=== PATIENT | female | born 1955 | race Caucasian/White ===

== ENCOUNTER 2017-05-08 12:00 | Inpatient (IN) | payer MEDICARE ==
[~2017-05-08] VITALS: Ht 175.3 cm; Wt 45.5 kg
[~2017-05-08 12:00] MED LIST: ACET1TAB27 PO; AMOX-429 PO; ESOM40CA PO; FENT12PAT TD; PRIM250T30 PO; PROP60CA2 PO; TYL3 PO
[2017-05-08] MEDS ORDERED: HYDROMORPHONE HCL 2 MG/ML VIAL ONE (12:20)
[2017-05-08 12:53] LABS: BASOPHILS % (AUTO) 0.1 % (0.0-5.0); HEMATOCRIT 35.2 % (36-48); LYMPHOCYTES % (AUTO) 8.5 % (21.0-51.0); MEAN CORPUSCULAR HEMOGLOBIN 35.7 pg (27.0-33.0); MEAN CORPUSCULAR HGB CONC 34.3 g/dL (32.0-36.0); MEAN CORPUSCULAR VOLUME 104.3 fL (79-99); MONOCYTES % (AUTO) 3.7 % (3.0-13.0); NEUTROPHILS % (AUTO) 87.7 % (40.0-77.0); NUCLEATED RED BLOOD CELLS 0.1 % (0.0-0.19); PLATELET COUNT (AUTO) 357 K/uL (130-400); RED BLOOD CELL COUNT(AUTO) 3.37 MIL/uL (4.00-5.50); RED CELL DISTRIBUTION WIDTH 13.1 % (11.0-15.5); WHITE BLOOD COUNT (AUTO) 16.1 K/uL (4.8-10.8)
[2017-05-08 12:59] VITALS: BP 135/87
[2017-05-08 13:01] LABS: CREATININE 0.6 mg/dL (0.5-1.5); POTASSIUM 4.9 mmol/L (3.5-5.1)
[2017-05-08 13:07] LABS: ALBUMIN 2.7 g/dL (3.5-5.0); BILIRUBIN,TOTAL 0.9 mg/dL (0.2-1.0); TOTAL PROTEIN, SERUM 6.1 g/dL (6.0-8.3)
[2017-05-08] MEDS ORDERED: SODIUM CHLORIDE 0.9% 10 ML VIAL IVP PRN (13:15)
[2017-05-08 16:05] VITALS: BP 102/73
[2017-05-08] MEDS: HYDROMORPHONE HCL 2 MG/ML VIAL IVP PRN ×2 (17:17→23:22)
[2017-05-08] MEDS: ASPIRIN 325MG EC TAB 325 MG TABLET.DR PO SCH (17:17)
[2017-05-08] MEDS: MEROPENEM 1 GM VIAL IVP SCH ×2 (17:17→23:21)
[2017-05-08 20:00] VITALS: BP 125/82
[2017-05-09] VITALS (7 sets, daily range): BP systolic 106–121; BP diastolic 68–82
[2017-05-09] MEDS: MEROPENEM 1 GM VIAL IVP SCH ×3 (05:57→22:10)
[2017-05-09] MEDS: HYDROMORPHONE HCL 2 MG/ML VIAL IVP PRN ×5 (05:57→23:30)
[2017-05-09] MEDS: ASPIRIN 325MG EC TAB 325 MG TABLET.DR PO SCH (10:17)
[2017-05-10] MEDS: HYDROMORPHONE HCL 2 MG/ML VIAL IVP PRN ×6 (02:50→21:30)
[2017-05-10 04:11] VITALS: BP 116/75
[2017-05-10 05:48] LABS: HEMATOCRIT 31.3 % (36-48); MEAN CORPUSCULAR HGB CONC 34.6 g/dL (32.0-36.0); MEAN CORPUSCULAR VOLUME 104.1 fL (79-99); PLATELET COUNT (AUTO) 200 K/uL (130-400); RED BLOOD CELL COUNT(AUTO) 3.01 MIL/uL (4.00-5.50); RED CELL DISTRIBUTION WIDTH 13.1 % (11.0-15.5); WHITE BLOOD COUNT (AUTO) 9.3 K/uL (4.8-10.8)
[2017-05-10 05:55] LABS: CREATININE 0.3 mg/dL (0.5-1.5); POTASSIUM 3.5 mmol/L (3.5-5.1)
[2017-05-10] MEDS: MEROPENEM 1 GM VIAL IVP SCH ×3 (06:31→21:32)
[2017-05-10 07:53] VITALS: BP 100/71
[2017-05-10] MEDS: ASPIRIN 325MG EC TAB 325 MG TABLET.DR PO SCH (10:16)
[2017-05-10 11:33] VITALS: BP 113/76
[2017-05-10 16:00] VITALS: BP 133/67
[2017-05-10 19:30] VITALS: BP 114/71
[2017-05-10 23:42] VITALS: BP 104/70
[2017-05-11] MEDS: HYDROMORPHONE HCL 2 MG/ML VIAL IVP PRN ×5 (02:16→22:02)
[2017-05-11 04:25] VITALS: BP 106/75
[2017-05-11] MEDS: MEROPENEM 1 GM VIAL IVP SCH ×3 (05:54→22:01)
[2017-05-11 08:22] VITALS: BP 123/78
[2017-05-11] MEDS: ASPIRIN 325MG EC TAB 325 MG TABLET.DR PO SCH (08:58)
[2017-05-11 11:00] VITALS: BP 97/63
[2017-05-11] MEDS: ACETAMINOPHEN-CODEINE 300/30MG TAB PO PRN (18:06)
[2017-05-11 19:00] VITALS: BP 116/72
[2017-05-11] MEDS: HONEY 1 APPL/ML TUBE TP SCH (20:42)
[2017-05-12] VITALS: BP 95/67
[2017-05-12] MEDS: HYDROMORPHONE HCL 2 MG/ML VIAL IVP PRN ×3 (03:29→15:22)
[2017-05-12 03:53] LABS: BASOPHILS % (AUTO) 0.7 % (0.0-5.0); EOSINOPHILS % (AUTO) 1.9 % (0.0-8.0); HEMATOCRIT 30.8 % (36-48); LYMPHOCYTES % (AUTO) 23.4 % (21.0-51.0); MEAN CORPUSCULAR HEMOGLOBIN 37.9 pg (27.0-33.0); MEAN CORPUSCULAR HGB CONC 36.3 g/dL (32.0-36.0); MEAN CORPUSCULAR VOLUME 104.2 fL (79-99); MONOCYTES % (AUTO) 11.8 % (3.0-13.0); NEUTROPHILS % (AUTO) 62.2 % (40.0-77.0); NUCLEATED RED BLOOD CELLS 0.1 % (0.0-0.19); PLATELET COUNT (AUTO) 234 K/uL (130-400); RED BLOOD CELL COUNT(AUTO) 2.95 MIL/uL (4.00-5.50); RED CELL DISTRIBUTION WIDTH 13.6 % (11.0-15.5)
[2017-05-12 04:00] VITALS: BP 116/78
[2017-05-12 04:05] LABS: ALBUMIN 1.9 g/dL (3.5-5.0); BILIRUBIN,TOTAL 0.3 mg/dL (0.2-1.0); CREATININE 0.5 mg/dL (0.5-1.5); POTASSIUM 3.7 mmol/L (3.5-5.1); TOTAL PROTEIN, SERUM 4.8 g/dL (6.0-8.3)
[2017-05-12] MEDS: ACETAMINOPHEN-CODEINE 300/30MG TAB PO PRN (06:44)
[2017-05-12] MEDS: MEROPENEM 1 GM VIAL IVP SCH ×2 (06:45→13:53)
[2017-05-12 08:00] VITALS: BP 115/69
[2017-05-12] MEDS: HONEY 1 APPL/ML TUBE TP SCH (09:00)
[2017-05-12] MEDS: ASPIRIN 325MG EC TAB 325 MG TABLET.DR PO SCH (09:56)
[2017-05-12 11:00] VITALS: BP 108/63
[2017-05-12 16:43] VITALS: BP 111/77
[2017-05-12] MEDS ORDERED: AMOX1TAB16 PO (18:53)
[2017-05-12] MEDS ORDERED: ACET1TAB25 PO (18:53)
== END 2017-05-12 21:29 | disposition home health service (06) | DRG 602 ==
LOC: EDH 12:00 → EDHIP 12:01 → 3AH 12:48
PROVIDERS: ADMIT Internal Medicine; ATTEND Internal Medicine
DX: L03.115 Cellulitis of right lower limb (principal); E43 Unspecified severe protein-calorie malnutrition; I96 Gangrene, not elsewhere classified; L97.909 Non-pressure chronic ulcer of unspecified part of unspecified lower leg with unspecified severity; K86.1 Other chronic pancreatitis; I87.2 Venous insufficiency (chronic) (peripheral); I87.8 Other specified disorders of veins; I83.009 Varicose veins of unspecified lower extremity with ulcer of unspecified site; L03.116 Cellulitis of left lower limb; F10.10 Alcohol abuse, uncomplicated; M19.90 Unspecified osteoarthritis, unspecified site; F17.210 Nicotine dependence, cigarettes, uncomplicated; G89.4 Chronic pain syndrome; I49.3 Ventricular premature depolarization; I77.1 Stricture of artery; M48.00 Spinal stenosis, site unspecified; M54.10 Radiculopathy, site unspecified; M79.7 Fibromyalgia; M81.0 Age-related osteoporosis without current pathological fracture; Z90.710 Acquired absence of both cervix and uterus; Z88.1 Allergy status to other antibiotic agents; Z88.8 Allergy status to other drugs, medicaments and biological substances
CPT/HCPCS: 36415; 80048; 80053; 85025; 85027; 93925; A4218; J1170; J2185

== ENCOUNTER 2017-05-15 04:07 | Observation (INO) | payer MEDICARE ==
[~2017-05-15] VITALS: Ht 175.3 cm; Wt 47.0 kg
[~2017-05-15 04:07] MED LIST changes: +ACET1TAB25 PO; +AMOX1TAB16 PO
[2017-05-15] MEDS ORDERED: ONDANSETRON HCL 4 MG/2 ML VIAL ONE (04:26)
[2017-05-15] MEDS ORDERED: HYDROMORPHONE HCL 2 MG/ML VIAL ONE ×2 (04:26→09:43)
[2017-05-15 04:47] LABS: BASOPHILS % (AUTO) 0.4 % (0.0-5.0); EOSINOPHILS % (AUTO) 0.1 % (0.0-8.0); LYMPHOCYTES % (AUTO) 19.4 % (21.0-51.0); MEAN CORPUSCULAR HEMOGLOBIN 35.7 pg (27.0-33.0); MEAN CORPUSCULAR HGB CONC 34.5 g/dL (32.0-36.0); MEAN CORPUSCULAR VOLUME 103.6 fL (79-99); MONOCYTES % (AUTO) 8.1 % (3.0-13.0); PLATELET COUNT (AUTO) 339 K/uL (130-400); RED BLOOD CELL COUNT(AUTO) 3.86 MIL/uL (4.00-5.50); RED CELL DISTRIBUTION WIDTH 13.4 % (11.0-15.5); WHITE BLOOD COUNT (AUTO) 10.4 K/uL (4.8-10.8)
[2017-05-15 04:55] LABS: CREATININE 0.4 mg/dL (0.5-1.5); POTASSIUM 3.4 mmol/L (3.5-5.1)
[2017-05-15 04:59] LABS: ALBUMIN 1.8 g/dL (3.5-5.0); BILIRUBIN,TOTAL 0.6 mg/dL (0.2-1.0); TOTAL PROTEIN, SERUM 5.1 g/dL (6.0-8.3)
[2017-05-15] MEDS ORDERED: BACLOFEN 10 MG TABLET PO ONE (06:02)
[2017-05-15] MEDS ORDERED: KETOROLAC TROMETHAMINE 15MG/ML ONE (06:02)
[2017-05-15] MEDS ORDERED: MORPHINE SULFATE 4 MG/1ML SYG ONE (07:47)
[2017-05-15] MEDS ORDERED: TETANUS/DIPHTHERIA TOXOID [ADULT] 0.5 ML VIAL IM ONE (07:48)
[2017-05-15 10:48] VITALS: BP 115/75
[2017-05-15] MEDS ORDERED: HYDR1SYR3 IJ (12:14)
[2017-05-15] MEDS ORDERED: HYDROMORPHONE 1 MG/1 ML AMP IVP PRN (13:30)
[2017-05-15] MEDS: HYDROMORPHONE HCL 0.5 MG/0.5 ML ML IVP PRN ×2 (14:29→20:42)
[2017-05-15] MEDS ORDERED: HYDROMORPHONE HCL 2 MG/ML VIAL IVP PRN (14:30)
[2017-05-15 19:05] VITALS: BP 104/68
[2017-05-15 23:05] VITALS: BP 111/79
[2017-05-16 03:10] VITALS: BP 138/100
[2017-05-16] MEDS: HYDROMORPHONE HCL 0.5 MG/0.5 ML ML IVP PRN ×5 (03:27→22:27)
[2017-05-16 08:00] VITALS: BP 159/97
[2017-05-16 11:41] VITALS: BP 126/69
[2017-05-16 16:00] VITALS: BP 128/82
[2017-05-16 19:00] VITALS: BP 138/77
[2017-05-16 23:05] VITALS: BP 126/90
[2017-05-17] MEDS: HYDROMORPHONE HCL 0.5 MG/0.5 ML ML IVP PRN ×3 (02:38→16:02)
[2017-05-17 03:05] VITALS: BP 121/85
[2017-05-17] MEDS ORDERED: HYDROMORPHONE 1 MG/1 ML AMP ONE (07:43)
[2017-05-17 08:00] VITALS: BP 135/99
[2017-05-17 12:00] VITALS: BP 154/92
[2017-05-17 16:00] VITALS: BP 133/93
[2017-05-17] MEDS ORDERED: HONEY 1 APPL/ML TUBE TP SCH (16:15)
[2017-05-17] MEDS ORDERED: ACETAMINOPHEN-CODEINE 300/30MG TAB PO PRN (18:30)
[2017-05-17 19:05] VITALS: BP 141/96
[2017-05-17] MEDS ORDERED: HYDROMORPHONE HCL 0.5 MG/0.5 ML ML IVP PRN (19:15)
[2017-05-17] MEDS: ONDANSETRON HCL 4 MG/2 ML VIAL IVP PRN (19:54)
[2017-05-17] MEDS: MAG HYDROX/AL HYDROX/SIMETH ES 30 ML SUSP UDCUP PO SCH (19:57)
[2017-05-17] MEDS: ACETAMINOPHEN-CODEINE 300/30MG TAB PO PRN (20:46)
[2017-05-17] MEDS: AMOXICILLIN/POTASSIUM CLAV 875-125 TABLET PO SCH (20:46)
[2017-05-17] MEDS ORDERED: FAMOTIDINE 20MG TAB 20 MG TAB PO SCH (21:00)
[2017-05-17] MEDS ORDERED: SODIUM CHLORIDE 0.9% 1000ML 1,000 ML IV SCH (22:00)
[2017-05-17] MEDS ORDERED: ZOLPIDEM TARTRATE 5 MG TAB PO PRN (22:00)
[2017-05-18 00:35] VITALS: BP 119/75
[2017-05-18 03:05] VITALS: BP 123/91
[2017-05-18] MEDS: HYDROMORPHONE 1 MG/1 ML AMP IVP PRN ×2 (03:54→16:24)
[2017-05-18] MEDS: AMOXICILLIN/POTASSIUM CLAV 875-125 TABLET PO SCH ×2 (06:15→18:10)
[2017-05-18 07:32] LABS: HEMATOCRIT 31.5 % (36-48); MEAN CORPUSCULAR HEMOGLOBIN 35.4 pg (27.0-33.0); MEAN CORPUSCULAR HGB CONC 34.8 g/dL (32.0-36.0); MEAN CORPUSCULAR VOLUME 101.8 fL (79-99); PLATELET COUNT (AUTO) 430 K/uL (130-400); RED BLOOD CELL COUNT(AUTO) 3.09 MIL/uL (4.00-5.50); RED CELL DISTRIBUTION WIDTH 13.5 % (11.0-15.5); WHITE BLOOD COUNT (AUTO) 14.8 K/uL (4.8-10.8)
[2017-05-18 08:52] VITALS: BP 136/90
[2017-05-18] MEDS ORDERED: FAMOTIDINE/PF 20 MG/2 ML VIAL IV SCH (09:00)
[2017-05-18 09:01] LABS: ALBUMIN 1.8 g/dL (3.5-5.0); BILIRUBIN,TOTAL 0.9 mg/dL (0.2-1.0); CREATININE 0.5 mg/dL (0.5-1.5); TOTAL PROTEIN, SERUM 4.7 g/dL (6.0-8.3)
[2017-05-18 09:09] LABS: POTASSIUM 2.3 mmol/L (3.5-5.1)
[2017-05-18] MEDS: MAG HYDROX/AL HYDROX/SIMETH ES 30 ML SUSP UDCUP PO SCH (09:53)
[2017-05-18] MEDS: ONDANSETRON HCL 4 MG/2 ML VIAL IVP PRN (09:59)
[2017-05-18] MEDS: ACETAMINOPHEN-CODEINE 300/30MG TAB PO PRN (09:59)
[2017-05-18] MEDS ORDERED: POTASSIUM CHLORIDE 10% ELIXIR 20 MEQ/15 ML UDCUP PO PRN (11:00)
[2017-05-18] MEDS: POTASSIUM CHLORIDE 20MEQ/100ML 100 ML IV PRN ×2 (12:32→16:22)
[2017-05-18] MEDS: POTASSIUM CHLORIDE 20 MEQ ERTAB PO PRN ×4 (12:32→18:09)
[2017-05-18] MEDS: LIDOCAINE HCL-MPF 1% 2ML VIAL IVP PRN ×2 (12:33→16:22)
[2017-05-18 13:09] VITALS: BP 115/68
[2017-05-18 17:10] VITALS: BP 143/80
== END 2017-05-18 20:02 ==
LOC: EDH 04:07 → EDHIP 08:13 → 3DH 10:28
PROVIDERS: ADMIT Internal Medicine; ATTEND Internal Medicine
DX: R10.13 Epigastric pain (principal); J44.9 Chronic obstructive pulmonary disease, unspecified; I87.2 Venous insufficiency (chronic) (peripheral); S32.030A Wedge compression fracture of third lumbar vertebra, initial encounter for closed fracture; M51.36 Other intervertebral disc degeneration, lumbar region; I83.009 Varicose veins of unspecified lower extremity with ulcer of unspecified site; L03.119 Cellulitis of unspecified part of limb; L97.909 Non-pressure chronic ulcer of unspecified part of unspecified lower leg with unspecified severity; E87.1 Hypo-osmolality and hyponatremia; R53.1 Weakness; R42 Dizziness and giddiness; G89.4 Chronic pain syndrome; W01.0XXA Fall on same level from slipping, tripping and stumbling without subsequent striking against object, initial encounter; Y93.89 Activity, other specified; Y92.89 Other specified places as the place of occurrence of the external cause; Y99.8 Other external cause status; Z90.710 Acquired absence of both cervix and uterus; Z87.891 Personal history of nicotine dependence
CPT/HCPCS: 36415 ×2; 72040; 72100; 73502; 80053 ×2; 84132; 85025; 85027; 90714; 93005; 96361 ×2; 96374; 96375 ×2; 96376 ×4; 99285; G0378 ×84; J1170 ×16; J1885; J2270; J2405 ×3; J3480 ×2; J3490 ×3; J7030

== ENCOUNTER 2017-08-06 18:53 | Inpatient (IN) | payer MEDICARE ==
[~2017-08-06] VITALS: Ht 172.7 cm; Wt 49.2 kg
[2017-08-06 19:33] LABS: BASOPHILS % (AUTO) 0.2 % (0.0-5.0); EOSINOPHILS % (AUTO) 0.6 % (0.0-8.0); HEMATOCRIT 38.2 % (36-48); LYMPHOCYTES % (AUTO) 20.3 % (21.0-51.0); MEAN CORPUSCULAR HEMOGLOBIN 34.9 pg (27.0-33.0); MEAN CORPUSCULAR HGB CONC 34.2 g/dL (32.0-36.0); MEAN CORPUSCULAR VOLUME 101.9 fL (79-99); MONOCYTES % (AUTO) 8.4 % (3.0-13.0); NEUTROPHILS % (AUTO) 70.5 % (40.0-77.0); PLATELET COUNT (AUTO) 262 K/uL (130-400); RED BLOOD CELL COUNT(AUTO) 3.75 MIL/uL (4.00-5.50); RED CELL DISTRIBUTION WIDTH 17.9 % (11.0-15.5); WHITE BLOOD COUNT (AUTO) 15.6 K/uL (4.8-10.8)
[2017-08-06] MEDS ORDERED: ONDANSETRON HCL MDV 20ML 2 MG/ML VIAL ONE (19:41)
[2017-08-06] MEDS ORDERED: SODIUM CHLORIDE 0.9% 1000ML 1,000 ML IV ONE (19:41)
[2017-08-06] MEDS ORDERED: MORPHINE SULFATE 4 MG/1ML SYG ONE ×2 (19:42→22:59)
[2017-08-06 19:48] LABS: ALBUMIN 2.8 g/dL (3.5-5.0); BILIRUBIN,TOTAL 1.3 mg/dL (0.2-1.0); CREATININE 0.4 mg/dL (0.5-1.5); TOTAL PROTEIN, SERUM 6.2 g/dL (6.0-8.3)
[2017-08-06 19:53] LABS: POTASSIUM 2.2 mmol/L (3.5-5.1)
[2017-08-06] MEDS ORDERED: POTASSIUM BICARB/CIT AC 25 MEQ TABLET.EFF ONE (22:12)
[2017-08-06] MEDS ORDERED: POTASSIUM CHLORIDE 20MEQ/100ML 100 ML IV ONE (22:13)
[2017-08-06] MEDS ORDERED: ONDANSETRON HCL MDV 20ML 2 MG/ML VIAL IVP PRN (23:00)
[2017-08-06 23:45] VITALS: BP 136/93
[2017-08-06 23:46] LABS: OCCULT BLOOD STOOL SINGLE ONLY NEGATIVE (NEGATIVE)
[2017-08-07] MEDS ORDERED: MORPHINE SULFATE 4 MG/1ML SYG IVP PRN (00:45)
[2017-08-07 04:27] LABS: HEMATOCRIT 32.2 % (36-48); MEAN CORPUSCULAR HEMOGLOBIN 36.5 pg (27.0-33.0); MEAN CORPUSCULAR VOLUME 101.3 fL (79-99); NUCLEATED RED BLOOD CELLS 0.1 % (0.0-0.19); PLATELET COUNT (AUTO) 208 K/uL (130-400); RED BLOOD CELL COUNT(AUTO) 3.18 MIL/uL (4.00-5.50); RED CELL DISTRIBUTION WIDTH 17.9 % (11.0-15.5); WHITE BLOOD COUNT (AUTO) 12.5 K/uL (4.8-10.8)
[2017-08-07 04:33] VITALS: BP 119/85
[2017-08-07 04:43] LABS: ALBUMIN 2.3 g/dL (3.5-5.0); BILIRUBIN,TOTAL 1.4 mg/dL (0.2-1.0); CREATININE 0.4 mg/dL (0.5-1.5); MAGNESIUM 0.9 mg/dL (1.80-2.40); POTASSIUM 3.2 mmol/L (3.5-5.1); TOTAL PROTEIN, SERUM 5.1 g/dL (6.0-8.3)
[2017-08-07] MEDS: METRONIDAZOLE 500 MG TABLET PO SCH ×3 (05:46→21:26)
[2017-08-07] MEDS: FENTANYL 25 MCG/HR PATCH TD SCH ×2 (06:15→09:00)
[2017-08-07 08:00] VITALS: BP 130/90
[2017-08-07] MEDS: PANTOPRAZOLE SODIUM 40 MG TABLET.DR PO SCH (08:55)
[2017-08-07] MEDS: LEVOFLOXACIN 500 MG TABLET PO SCH ×2 (08:55→08:59)
[2017-08-07] MEDS: MORPHINE SULFATE 4 MG/1ML SYG IVP PRN ×4 (08:55→21:26)
[2017-08-07 11:39] VITALS: BP 137/97
[2017-08-07] MEDS ORDERED: MAG HYDROX/AL HYDROX/SIMETH ES 30 ML SUSP UDCUP PO SCH (15:31)
[2017-08-07] MEDS: DEXTROSE 5 % AND 0.9 % NACL 1,000 ML IV SCH (15:47)
[2017-08-07 16:39] VITALS: BP 141/97
[2017-08-07 19:20] VITALS: BP 143/93
[2017-08-07] MEDS ORDERED: LIDOCAINE HCL-MPF 1% 2ML VIAL IVP PRN (19:45)
[2017-08-07] MEDS ORDERED: POTASSIUM CHLORIDE 10% ELIXIR 20 MEQ/15 ML UDCUP PO PRN (19:45)
[2017-08-07] MEDS ORDERED: POTASSIUM CHLORIDE 20MEQ/100ML 100 ML IV PRN (19:45)
[2017-08-07] MEDS: MAGNESIUM 2GM PREMIX 50ML 50 ML IV SCH (20:23)
[2017-08-07] MEDS: POTASSIUM CHLORIDE 20 MEQ ERTAB PO PRN (22:05)
[2017-08-08] VITALS (7 sets, daily range): BP systolic 105–136; BP diastolic 66–94
[2017-08-08] MEDS: POTASSIUM CHLORIDE 20 MEQ ERTAB PO PRN ×5 (00:28→14:34)
[2017-08-08] MEDS: MORPHINE SULFATE 4 MG/1ML SYG IVP PRN ×6 (01:18→21:51)
[2017-08-08] MEDS: METRONIDAZOLE 500 MG TABLET PO SCH ×3 (05:16→21:42)
[2017-08-08 05:22] LABS: HEMATOCRIT 31.1 % (36-48); MEAN CORPUSCULAR HEMOGLOBIN 35.9 pg (27.0-33.0); MEAN CORPUSCULAR HGB CONC 35.3 g/dL (32.0-36.0); MEAN CORPUSCULAR VOLUME 101.9 fL (79-99); NUCLEATED RED BLOOD CELLS 0.1 % (0.0-0.19); PLATELET COUNT (AUTO) 173 K/uL (130-400); RED BLOOD CELL COUNT(AUTO) 3.05 MIL/uL (4.00-5.50); RED CELL DISTRIBUTION WIDTH 17.6 % (11.0-15.5); WHITE BLOOD COUNT (AUTO) 7.7 K/uL (4.8-10.8)
[2017-08-08 05:32] LABS: ALBUMIN 2.1 g/dL (3.5-5.0); BILIRUBIN,TOTAL 1.3 mg/dL (0.2-1.0); CREATININE 0.3 mg/dL (0.5-1.5); MAGNESIUM 1.3 mg/dL (1.80-2.40); POTASSIUM 3.3 mmol/L (3.5-5.1); TOTAL PROTEIN, SERUM 4.8 g/dL (6.0-8.3)
[2017-08-08] MEDS: MAGNESIUM 2GM PREMIX 50ML 50 ML IV SCH (06:31)
[2017-08-08] MEDS: PANTOPRAZOLE SODIUM 40 MG TABLET.DR PO SCH ×2 (06:40→07:51)
[2017-08-08] MEDS: LEVOFLOXACIN 500 MG TABLET PO SCH (09:27)
[2017-08-08] MEDS ORDERED: KETOROLAC TROMETHAMINE 30MG/ML IV SCH (11:45)
[2017-08-08] MEDS ORDERED: DIATR MEGLU/DIATRIZOATE SODIUM 30 ML BOTTLE ONE (11:49)
[2017-08-08] MEDS ORDERED: IOPAMIDOL-370 100 ML VIAL IV ONE (13:49)
[2017-08-08] MEDS: DEXTROSE 5 % AND 0.9 % NACL 1,000 ML IV SCH (17:45)
[2017-08-09 00:20] VITALS: BP 137/85
[2017-08-09] MEDS: MORPHINE SULFATE 4 MG/1ML SYG IVP PRN ×5 (01:57→18:21)
[2017-08-09] MEDS: METRONIDAZOLE 500 MG TABLET PO SCH ×3 (05:41→21:30)
[2017-08-09] MEDS: DEXTROSE 5 % AND 0.9 % NACL 1,000 ML IV SCH (06:45)
[2017-08-09] MEDS: PANTOPRAZOLE SODIUM 40 MG TABLET.DR PO SCH ×2 (06:51→09:50)
[2017-08-09 08:00] VITALS: BP 144/97
[2017-08-09] MEDS: LEVOFLOXACIN 500 MG TABLET PO SCH (09:50)
[2017-08-09] MEDS: NEOMY SULF/BACITRA/POLYMYXIN B 1 EACH PACKET TP SCH (09:50)
[2017-08-09 11:54] VITALS: BP 146/91
[2017-08-09 14:31] LABS: CREATININE 0.4 mg/dL (0.5-1.5); MAGNESIUM 1.3 mg/dL (1.80-2.40); POTASSIUM 4.6 mmol/L (3.5-5.1)
[2017-08-09 16:38] VITALS: BP 150/97
[2017-08-09 19:12] VITALS: BP 157/96
[2017-08-09] MEDS: MAGNESIUM 2GM PREMIX 50ML 50 ML IV SCH (23:33)
[2017-08-10 00:38] VITALS: BP 153/89
[2017-08-10] MEDS: DEXTROSE 5 % AND 0.9 % NACL 1,000 ML IV SCH ×2 (02:11→13:38)
[2017-08-10] MEDS: MORPHINE SULFATE 4 MG/1ML SYG IVP PRN ×5 (02:16→18:46)
[2017-08-10 04:25] VITALS: BP 144/84
[2017-08-10] MEDS: METRONIDAZOLE 500 MG TABLET PO SCH ×2 (05:42→13:38)
[2017-08-10] MEDS: FENTANYL 25 MCG/HR PATCH TD SCH (05:43)
[2017-08-10 06:09] LABS: HEMATOCRIT 33.9 % (36-48); MEAN CORPUSCULAR HEMOGLOBIN 35.6 pg (27.0-33.0); MEAN CORPUSCULAR HGB CONC 34.6 g/dL (32.0-36.0); PLATELET COUNT (AUTO) 186 K/uL (130-400); RED BLOOD CELL COUNT(AUTO) 3.29 MIL/uL (4.00-5.50); RED CELL DISTRIBUTION WIDTH 17.9 % (11.0-15.5); WHITE BLOOD COUNT (AUTO) 6.5 K/uL (4.8-10.8)
[2017-08-10] MEDS: PANTOPRAZOLE SODIUM 40 MG TABLET.DR PO SCH ×2 (06:24→08:45)
[2017-08-10 06:25] LABS: ALBUMIN 2.2 g/dL (3.5-5.0); BILIRUBIN,TOTAL 0.6 mg/dL (0.2-1.0); CREATININE 0.4 mg/dL (0.5-1.5); MAGNESIUM 1.8 mg/dL (1.80-2.40); POTASSIUM 3.9 mmol/L (3.5-5.1); TOTAL PROTEIN, SERUM 5.1 g/dL (6.0-8.3)
[2017-08-10] MEDS: NEOMY SULF/BACITRA/POLYMYXIN B 1 EACH PACKET TP SCH (08:45)
[2017-08-10] MEDS: LEVOFLOXACIN 500 MG TABLET PO SCH (08:45)
[2017-08-10 08:58] VITALS: BP 134/84
[2017-08-10 12:06] VITALS: BP 134/88
[2017-08-10] MEDS: MAGNESIUM 2GM PREMIX 50ML 50 ML IV SCH (14:27)
[2017-08-10 16:28] VITALS: BP 150/95
== END 2017-08-10 20:00 | DRG 392 ==
LOC: EDH 18:53 → OBSVTOIN 22:30 → EDHIP 22:30 → 3CH 23:31
PROVIDERS: ADMIT Internal Medicine Infectious Disease; ATTEND Internal Medicine Infectious Disease
DX: A09 Infectious gastroenteritis and colitis, unspecified (principal); E44.0 Moderate protein-calorie malnutrition; L97.909 Non-pressure chronic ulcer of unspecified part of unspecified lower leg with unspecified severity; L03.116 Cellulitis of left lower limb; E83.42 Hypomagnesemia; Z68.1 Body mass index [BMI] 19.9 or less, adult; E86.0 Dehydration; E87.6 Hypokalemia; M19.90 Unspecified osteoarthritis, unspecified site; G89.29 Other chronic pain; M79.7 Fibromyalgia; Z88.8 Allergy status to other drugs, medicaments and biological substances
CPT/HCPCS: 36415; 74021; 74178; 80048; 80053; 82150; 82270; 83690; 83735; 85025; 85027; 87046; 87177; 87205; 87324; 97039; J1885; J2270; J3475; J3480; J7030; J7042; Q9963; Q9967

== ENCOUNTER 2019-11-25 15:02 | Inpatient (IN) | payer MEDICARE ==
[~2019-11-25] VITALS: Ht 175.3 cm; Wt 46.7 kg
[~2019-11-25 15:02] MED LIST changes: -ACET1TAB25 PO; -AMOX-429 PO; -AMOX1TAB16 PO; -ESOM40CA PO; -FENT12PAT TD; +MECL-183 PO; +MEGE20TA3 PO; +MULT-264 PO; +PRIM250T24 PO; -PRIM250T30 PO; -PROP60CA2 PO; +SERT25TA5 PO; -TYL3 PO; +UMEC62.5 IH
[2019-11-25] MEDS ORDERED: SODIUM CHLORIDE 0.9% 1000ML 1,000 ML IV ONE ×2 (15:35→18:50)
[2019-11-25] MEDS ORDERED: MORPHINE SULFATE 2 MG/ML 1ML SYG ONE ×2 (15:36→23:39)
[2019-11-25] MEDS ORDERED: ONDANSETRON HCL 4 MG/2 ML VIAL ONE (15:36)
[2019-11-25 15:41] LABS: BASOPHILS % (AUTO) 0.6 % (0.0-5.0); EOSINOPHILS % (AUTO) 1.1 % (0.0-8.0); HEMATOCRIT 43.4 % (36-48); LYMPHOCYTES % (AUTO) 8.9 % (21.0-51.0); MEAN CORPUSCULAR HEMOGLOBIN 33.4 pg (27.0-33.0); MEAN CORPUSCULAR HGB CONC 32.9 g/dL (32.0-36.0); MEAN CORPUSCULAR VOLUME 101.4 fL (79-99); MONOCYTES % (AUTO) 7.9 % (3.0-13.0); NEUTROPHILS % (AUTO) 81.1 % (40.0-77.0); PLATELET COUNT (AUTO) 431 K/uL (130-400); RED BLOOD CELL COUNT(AUTO) 4.28 MIL/uL (4.00-5.50); RED CELL DISTRIBUTION WIDTH 13.3 % (11.0-15.5); WHITE BLOOD COUNT (AUTO) 17.3 K/uL (4.8-10.8)
[2019-11-25 15:49] LABS: INR 1.17 (0.85-1.15); PARTIAL THROMBOPLASTIN TIME 25.4 SEC (26.3-35.5); PROTHROMBIN TIME 12.6 SEC (9.6-11.6)
[2019-11-25 15:52] LABS: ALBUMIN 1.9 g/dL (3.5-5.0); BILIRUBIN,TOTAL 0.8 mg/dL (0.2-1.0); CREATININE 0.6 mg/dL (0.5-1.5); TOTAL PROTEIN, SERUM 5.4 g/dL (6.0-8.3)
[2019-11-25 15:54] LABS: POTASSIUM 2.8 mmol/L (3.5-5.1)
[2019-11-25] MEDS ORDERED: POTASSIUM CHLORIDE 10% ELIXIR 20 MEQ/15 ML UDCUP ONE (16:14)
[2019-11-25] MEDS ORDERED: POTASSIUM CHLORIDE 20MEQ/100ML 100 ML IV ONE (16:17)
[2019-11-25] MEDS ORDERED: LIDOCAINE HCL-MPF 1% 2ML VIAL ONE (16:17)
[2019-11-25 18:15] LABS: APPEARANCE,URINE CLEAR (CLEAR); BILIRUBIN,URINE SMALL (NEGATIVE); COLOR,URINE YELLOW (YELLOW); GLUCOSE, URINE (UA) NEGATIVE (NEGATIVE); KETONES,URINE >=80 mg/dL (NEGATIVE); LEUKOCYTE ESTERASE ,URINE NEGATIVE (NEGATIVE); NITRATE,URINE NEGATIVE (NEGATIVE); OCCULT BLOOD,URINE NEGATIVE (NEGATIVE); PH,URINE 6.5 (5.0-8.0); PROTEIN,URINE TRACE mg/dL (NEGATIVE); UROBILINOGEN,URINE 0.2 mg/dL (0.2-1.0)
[2019-11-25 18:21] LABS: BACTERIA,URINE Few /HPF (None Seen); MUCUS,URINE Few LPF (None Seen); RBC,URINE 0-1 /HPF (0-1); SQUAMOUS EPITHELIAL CELL,UR Rare /HPF (0-2); WBC,URINE 0-1 /HPF (0-1)
[2019-11-25] MEDS: SODIUM CHLORIDE 0.9% 1000ML 1,000 ML IV SCH (19:00)
[2019-11-25] MEDS ORDERED: DILTIAZEM HCL 125 MG/25 ML 125 MG in SODIUM CHLORIDE 0.9% 100 ML IV SCH (19:00)
[2019-11-25] MEDS ORDERED: CEFTRIAXONE SODIUM 1 GM ONE (19:37)
[2019-11-25] MEDS ORDERED: SODIUM CHLORIDE 0.9% 100 ML IV ONE (19:40)
[2019-11-25] MEDS: CEFTRIAXONE SODIUM 1 GM IVP SCH (21:00)
[2019-11-25 23:30] VITALS: BP 108/73
[2019-11-26] VITALS (7 sets, daily range): BP systolic 107–132; BP diastolic 69–89
[2019-11-26] MEDS: SODIUM CHLORIDE 0.9% 1000ML 1,000 ML IV SCH ×2 (01:06→16:07)
[2019-11-26] MEDS: MORPHINE SULFATE 2 MG/ML 1ML SYG IVP PRN ×5 (05:34→22:11)
[2019-11-26] MEDS: ONDANSETRON HCL 4 MG/2 ML VIAL IVP PRN ×3 (09:55→22:11)
--- NOTE | 2019-11-26 16:03 | NUR ---
CM NOTE CM attempted phone call to room. No answer. CM then attempted phone call to number on facesheet [phone], no answer, left voicemail. CM to reattempt contact at another time.
[2019-11-26] MEDS: CEFTRIAXONE SODIUM 1 GM IVP SCH (19:49)
[2019-11-27] MEDS: SODIUM CHLORIDE 0.9% 1000ML 1,000 ML IV SCH ×3 (00:38→20:17)
[2019-11-27 04:06] VITALS: BP 109/61
[2019-11-27 06:18] LABS: HEMATOCRIT 35.2 % (36-48); MEAN CORPUSCULAR HEMOGLOBIN 32.8 pg (27.0-33.0); MEAN CORPUSCULAR HGB CONC 32.7 g/dL (32.0-36.0); MEAN CORPUSCULAR VOLUME 100.3 fL (79-99); PLATELET COUNT (AUTO) 325 K/uL (130-400); RED BLOOD CELL COUNT(AUTO) 3.51 MIL/uL (4.00-5.50); RED CELL DISTRIBUTION WIDTH 13.2 % (11.0-15.5); WHITE BLOOD COUNT (AUTO) 12.7 K/uL (4.8-10.8)
[2019-11-27 06:50] LABS: CREATININE 0.4 mg/dL (0.5-1.5)
[2019-11-27] MEDS: MORPHINE SULFATE 2 MG/ML 1ML SYG IVP PRN ×4 (06:50→20:12)
[2019-11-27] MEDS: ONDANSETRON HCL 4 MG/2 ML VIAL IVP PRN ×2 (06:50→20:11)
[2019-11-27 06:56] VITALS: BP 124/80
[2019-11-27 07:01] LABS: POTASSIUM 2.4 mmol/L (3.5-5.1)
[2019-11-27 07:21] LABS: BAND NEUTROPHILS % (MANUAL) 1 % (0-2); BASOPHILS % (MANUAL) 3 % (0-2); EOSINOPHILS % (MANUAL) 1 % (1-6); LYMPHOCYTES % (MANUAL) 4 % (22-44); MAN.DIFF COMMENT-IMPRESSION MANUAL DIFFERENTIAL; MONOCYTES % (MANUAL) 8 % (2-9); PLATELET MORPHOLOGY COMMENT ADEQUATE; SEGMENTED NEUTROPHILS % 83 % (40-70)
[2019-11-27] MEDS ORDERED: IOHEXOL 350 MG/ML 100ML INFUS..BTL IV ONE (09:38)
[2019-11-27 11:00] VITALS: BP 117/63
[2019-11-27] MEDS: POTASSIUM CHLORIDE 20MEQ/100ML 100 ML IV PRN ×2 (11:52→16:04)
[2019-11-27] MEDS: LIDOCAINE HCL-MPF 1% 2ML VIAL IJ PRN ×2 (11:53→16:04)
[2019-11-27 16:00] VITALS: BP 125/76
--- NOTE | 2019-11-27 17:31 | NUR ---
DR HIRSCH REVIEWED THE EKG'S AND DETERMINED THAT THERE IS NO ATRIAL FIBRILLATION AND THAT THERE WAS NO NEED FOR THE CONSULT. PATIENT HAS BEEN SINUS TACHYCARDIA AT A CONTROLLED RATE IN THE 90'S TO LOW 100'S. DR HIRSCH REVIEWED ALL THE EKG STRIPS, EVEN THE ADMISSION STRIPS AND DETERMINED THAT IT WAS SINUS TACHYCARDIA AND SIGNED THE EKG. Addendum: 11/27/19 at 1734 by CHRISTOPHER CASON RN RN Amended: Links added.
--- NOTE | 2019-11-27 18:14 | NUR ---
cm note spoke to pt and states resides at home with mother. pt use cane and walker for ambulation, able to do own personal care/adls. has tailor's aide daily to assist as needed. pt drives. dc plan is back to home at ma. feels safe to return. no dc needs. Addendum: 11/27/19 at 1822 by ERIK ALDRIDGE CM Amended: Links added.
[2019-11-27] MEDS: CEFTRIAXONE SODIUM 1 GM IVP SCH (20:02)
[2019-11-27 20:09] VITALS: BP 154/81
[2019-11-27] MEDS: POTASSIUM CHLORIDE 20 MEQ ERTAB PO PRN (22:33)
[2019-11-28] VITALS (7 sets, daily range): BP systolic 142–170; BP diastolic 79–89
[2019-11-28] MEDS: MORPHINE SULFATE 2 MG/ML 1ML SYG IVP PRN ×5 (00:31→21:35)
[2019-11-28] MEDS: SODIUM CHLORIDE 0.9% 1000ML 1,000 ML IV SCH ×3 (03:27→16:04)
[2019-11-28 05:34] LABS: HEMATOCRIT 33.1 % (36-48); MEAN CORPUSCULAR HEMOGLOBIN 33.6 pg (27.0-33.0); MEAN CORPUSCULAR HGB CONC 33.5 g/dL (32.0-36.0); MEAN CORPUSCULAR VOLUME 100.3 fL (79-99); RED BLOOD CELL COUNT(AUTO) 3.3 MIL/uL (4.00-5.50); RED CELL DISTRIBUTION WIDTH 13.2 % (11.0-15.5); WHITE BLOOD COUNT (AUTO) 11.6 K/uL (4.8-10.8)
[2019-11-28] MEDS: POTASSIUM CHLORIDE 20 MEQ ERTAB PO PRN (06:00)
[2019-11-28 06:26] LABS: ALBUMIN 1.5 g/dL (3.5-5.0); BILIRUBIN,TOTAL 0.3 mg/dL (0.2-1.0); CREATININE 0.4 mg/dL (0.5-1.5); POTASSIUM 3.1 mmol/L (3.5-5.1); TOTAL PROTEIN, SERUM 4.4 g/dL (6.0-8.3)
--- NOTE | 2019-11-28 09:41 | NUR ---
RESTING IN BED WITH EYES CLOSED, RESP.'S EVEN AND UNLABORED. HOB AT 50 DEGREES. CALL LIGHT WITHIN REACH. TELEVISION ON. ROOM DOOR OPEN.
--- NOTE | 2019-11-28 11:37 | NUR ---
RECEIVED CALL FROM SHARON, WHO STATES DR. MERCADO IS IN A CASE. CONSULT INFORMATION PROVIDED, SHARON STATES DR. MERCADO TO RETURN CALL; RETURN PHONE NUMBER PROVIDED.
--- NOTE | 2019-11-28 11:48 | NUR ---
DR. Oneal HOLDEN IN ROOM SPEAKING WITH PT.
[2019-11-28] MEDS: POTASSIUM CHLORIDE 10% ELIXIR 20 MEQ/15 ML UDCUP PO PRN ×2 (12:05→17:29)
--- NOTE | 2019-11-28 15:34 | NUR ---
RECEIVED CALL FROM DR. MERCADO. INFORMED OF CONSULT AND QUESTIONS ANSWERED. DR. MERCADO REQUESTING PT. ASKED IF SHE'S EVER HAD AN EGD OR A COLONOSCOPY DONE BEFORE AND BY WHOM; DR. MERCADO STATES HE, " WILL CALL BACK BEFORE THE END OF [MY] SHIFT " FOR RECOMMENDATIONS.
[2019-11-28] MEDS: CEFTRIAXONE SODIUM 1 GM IVP SCH (19:31)
--- NOTE | 2019-11-28 21:50 | NUR ---
A head-to-toe assessment has been done on the patient. She has been cleaned and a mepilex has been placed on her bottom. Her dressings on her skin tears have been changed as well. She was having complaints of SOB just as she did yesterday at the beginning of my shift. Her IV fluids have been turned off because she is drinking water constantly & she does have latoya. pleural effusions. She was informed of her EGD she has tomorrow morning and that she is to remain NPO after midnight. Her consent form is signed and on the chart. I have followed up with her concerning her SOB and she stated that it has resolved.
[2019-11-29] VITALS (21 sets, daily range): BP systolic 121–165; BP diastolic 66–91
[2019-11-29] MEDS: SODIUM CHLORIDE 0.9% 1000ML 1,000 ML IV SCH ×4 (02:26→14:39)
[2019-11-29] MEDS: MORPHINE SULFATE 2 MG/ML 1ML SYG IVP PRN ×5 (02:46→22:31)
[2019-11-29 06:03] LABS: HEMATOCRIT 35.6 % (36-48); MEAN CORPUSCULAR HEMOGLOBIN 33.8 pg (27.0-33.0); MEAN CORPUSCULAR HGB CONC 33.7 g/dL (32.0-36.0); MEAN CORPUSCULAR VOLUME 100.3 fL (79-99); RED BLOOD CELL COUNT(AUTO) 3.55 MIL/uL (4.00-5.50); RED CELL DISTRIBUTION WIDTH 13.2 % (11.0-15.5); WHITE BLOOD COUNT (AUTO) 14.4 K/uL (4.8-10.8)
[2019-11-29 06:15] LABS: CREATININE 0.3 mg/dL (0.5-1.5); POTASSIUM 3.2 mmol/L (3.5-5.1)
[2019-11-29] MEDS: POTASSIUM CHLORIDE 20MEQ/100ML 100 ML IV PRN (06:47)
--- NOTE | 2019-11-29 11:11 | NUR ---
RD NOTIFICATION Pt admitted with new onset AFIB. Pt with poor PO d/t N/V. NPO pending EGD. Pt tolerating water/liquids as per EMR. Called Pt room x 2; no answer. Pt Underweight, BMI 13.2. Pt with L-Buttock wound. Recommend resume Clear/Full Liquid diet order with nutrition supplementation when medically feasible. If intolerance continues, recommend alternate means nutrition. RD to continue to monitor. Please notify as additional nutrition concerns arise. Thank you. Addendum: 11/29/19 at [address] Amended: Links added.
--- NOTE | 2019-11-29 11:21 | NUR ---
TO GI LAB VIA BED ACCOMPANIED BY Quinten VALENTE, GI DISTRIBUTION A CLASS LINEMAN.
--- NOTE | 2019-11-29 13:06 | NUR ---
RETURNED TO ROOM VIA BED ACCOMPANIED BY Lesly STEEN RN. PT. AAOX3, RESP.'S EVEN AND UNLABORED. O2 AT 28%. DENIES ANY CURRENT SOB. BED LOW, SIDE RAILS UP X3. CALL LIGHT WITHIN REACH, VERBALIZED ABILITY TO USE.
[2019-11-29] MEDS ORDERED: FUROSEMIDE 10 MG/ML 2ML VIAL IV SCH (14:30)
[2019-11-29] MEDS ORDERED: FUROSEMIDE 10 MG/ML 2ML VIAL ONE (14:34)
--- NOTE | 2019-11-29 14:59 | NUR ---
RESTING IN BED WITH EYES CLOSED. HOB AT SEMI-CORTES'S POSITION. RESP.'S EVEN AND UNLABORED. O2 AT 2L/NC. PULSE OXIMETER 100%. CALL LIGHT WITHIN REACH. ROOM DOOR OPEN.
[2019-11-29] MEDS ORDERED: PHARMACY COMMUNICATION MISC SCH (17:15)
[2019-11-29] MEDS: CEFTRIAXONE SODIUM 1 GM IVP SCH (21:32)
[2019-11-29] MEDS: PANTOPRAZOLE SODIUM 40 MG TABLET.DR PO SCH (21:32)
[2019-11-29] MEDS: SUCRALFATE 1 GM TABLET PO SCH (21:32)
[2019-11-30] MEDS: MORPHINE SULFATE 2 MG/ML 1ML SYG IVP PRN ×4 (02:35→20:06)
[2019-11-30] MEDS: POTASSIUM CHLORIDE 20MEQ/100ML 100 ML IV PRN (02:39)
[2019-11-30] MEDS: LIDOCAINE HCL-MPF 1% 2ML VIAL IJ PRN (02:40)
[2019-11-30 04:14] VITALS: BP 124/87
[2019-11-30] MEDS: POTASSIUM CHLORIDE 10% ELIXIR 20 MEQ/15 ML UDCUP PO PRN ×3 (06:43→13:56)
[2019-11-30 08:00] VITALS: BP 184/97
[2019-11-30] MEDS: SUCRALFATE 1 GM TABLET PO SCH ×3 (09:50→20:06)
[2019-11-30] MEDS: PANTOPRAZOLE SODIUM 40 MG TABLET.DR PO SCH ×2 (09:50→20:06)
[2019-11-30 11:45] VITALS: BP 123/96
[2019-11-30] MEDS ORDERED: FENTANYL 25 MCG/HR PATCH TD SCH (12:30)
--- NOTE | 2019-11-30 12:43 | NUR ---
AT BEDSIDE WITH PATIENT FOR PLAN OF CARE/DC PLANNING. [facility] WANTS DR. HOLDEN TO COME BACK & DISCUSS HER EGD RESULTS WITH HER DECLINED SNF ([facility]) PLACEMENT, LIVES WITH MOM AT HOME AND HAS ART [employer]JECTS SALESPERSON TO LOOK AFTER HER. USES A WHEELCHAIR BUT CAN TRANSFER SELF INDEPENDENTLY. [facility] HAD DR. DONOVAN FOR A YEAR, THEN DR. REBOLLEDO, NOW DR. HOLDEN. SPOKE TO DR. HOLDEN VIA PHONE RE D/C PLANS. JEANNINE IS SUGGESTING SOME KIND OF PLACEMENT ORDERS FOR REG DIET AND FENTANYL PATCH RECD AND RELAYED TO LATASHA JENKINS FOR INPUTITNG. JEANNINE REVIEWED CT & SENT TEXT TO DR. HOLDEN. RE COMPRESSION FX T11- PT & ABD [facility] Addendum: 11/30/19 at 1301 by EBONI MOON RN CM Amended: Links added.
[2019-11-30] MEDS: SODIUM CHLORIDE 0.9% 1000ML 1,000 ML IV SCH (13:57)
[2019-11-30 16:00] VITALS: BP 143/106
[2019-11-30 19:38] VITALS: BP 146/99
[2019-11-30] MEDS: CEFTRIAXONE SODIUM 1 GM IVP SCH (20:06)
[2019-11-30 23:47] VITALS: BP 156/99
[2019-12-01] VITALS (8 sets, daily range): BP systolic 91–198; BP diastolic 52–129
[2019-12-01] MEDS: MORPHINE SULFATE 2 MG/ML 1ML SYG IVP PRN ×7 (00:08→21:06)
[2019-12-01] MEDS: PANTOPRAZOLE SODIUM 40 MG TABLET.DR PO SCH ×2 (08:43→21:05)
[2019-12-01] MEDS: SUCRALFATE 1 GM TABLET PO SCH ×3 (08:43→21:05)
--- NOTE | 2019-12-01 11:41 | NUR ---
RAMIRO JACKSON MD, PT Addendum: 12/01/19 at 1141 by EBONI MOON RN CM NO ANSWER, WILL TRY AGAIN
[2019-12-01] MEDS: SODIUM CHLORIDE 0.9% 1000ML 1,000 ML IV SCH (15:32)
[2019-12-01] MEDS: CEFTRIAXONE SODIUM 1 GM IVP SCH (21:05)
[2019-12-02] MEDS: MORPHINE SULFATE 2 MG/ML 1ML SYG IVP PRN ×3 (01:06→10:16)
[2019-12-02] MEDS ORDERED: LINA1TAB5 PO (01:13)
[2019-12-02 03:49] VITALS: BP 131/88
--- NOTE | 2019-12-02 07:40 | NUR ---
ASSESSMENT ENCOUNTERED PT ASLEEP BUT AROUSEABLE, A&OX3, FLAT AFFECT, C/O GENERALIZED BODY ACHES. PT ASKED IF SHE WAS ABLE TO RECEIVE ANOTHER DOSE OF MORPHINE IV. INFORMED HER THAT IT WAS NOT DUE. PT DOES NOT APPEAR TO BE IN ANY DISTRESS NOR ANY NEURO DEFICITS PRESENT. PT IS ABLE TO TOLERATE FOODS, FLUIDS AND MEDICATION WITH NO THROAT CLEARING OR COUGH. CALL LIGHT WITHIN REACH.
[2019-12-02 08:39] VITALS: BP 155/112
[2019-12-02] MEDS: SUCRALFATE 1 GM TABLET PO SCH (10:11)
[2019-12-02] MEDS: PANTOPRAZOLE SODIUM 40 MG TABLET.DR PO SCH (10:12)
--- NOTE | 2019-12-02 12:10 | NUR ---
Pt is bedbound; unable to obtain ambulating SpO2. Addendum: 12/02/19 at 1211 [address]UEL RT Amended: Links added.
--- NOTE | 2019-12-02 15:00 | NUR ---
DISCHARGE INSTRUCTIONS GIVEN, PIV REMOVED AND INTACT, DISCHARGED HOME TO FAMILY VEHICLE VIA WHEELCHAIR.
--- NOTE | 2019-12-02 15:29 | NUR ---
RD FOLLOW UP Diet advanced to GI Soft/[place] diet. Pt tolerating with no report of GI distress. Fair and improving PO intake. LBM 11/26/19. Desirable weight gain of approximately 6 kg. Monitored labs: BUN 1, Cr 0.3, Ca 7.0, WBC 14.4. Recommend daily multivitamin Recommend stool softener/laxative as medically feasible Recommend Ensure QD RD to continue to monitor. Addendum: 12/02/19 at [address] Amended: Links added.
--- NOTE | 2019-12-02 16:30 | NUR ---
SPOKE TO [facility] RE REFERRAL SENT YESTERDAY, THEY ARE UNABLE TO TAKE PATIENT, NON COMPLIANT, DOES NOT FOLLOW MEDICARE GUIDELINES, DRIVES WHILE INTOXICATED, ETC. OTHER BEHAVIORS WELL. JEANNINE ADVISED PT IS NO LONGER DRIVING, DECREASED MOBILITY, PLEASE RECONSIDER? [facility] DISCUSSED AND CAME BACK WITH NO, WILL NOT TAKE PT. ADVISED PT, WHO STATES THAT WAS FINE, SHE CARMEL NOT WANT ANY HELP ANYWAY AND HE MOM WOUL PICK HER UP DR. HOLDEN CALLED OT INFORM. CM TOLD DR. Bhakta THAT NOT APPROPRIATE TO SENT TO OTHER WIHTOUT DISCLOSURE BUT THAT IT WOULD BE UNLIKELY ANOTHER [facility] WOULD TAKE IF DISCLOSED. DR. EVANS STATES OK TO DC PATIENT Addendum: 12/02/19 at 1639 by EBONI MOON RN CM Amended: Links added.
== END 2019-12-02 15:35 | disposition home or self-care (01) | DRG 391 ==
LOC: EDH 15:02 → EDHIP 18:13 → 4CH 23:35
PROVIDERS: ADMIT Internal Medicine Hematology & Oncology; ATTEND Internal Medicine Hematology & Oncology
PROC: 0DB68ZX Excision of Stomach, Via Natural or Artificial Opening Endoscopic, Diagnostic (ICD-10-PCS; principal; 2019-11-29)
DX: K21.0 Gastro-esophageal reflux disease with esophagitis (principal); E43 Unspecified severe protein-calorie malnutrition; K29.70 Gastritis, unspecified, without bleeding; I48.91 Unspecified atrial fibrillation; G89.29 Other chronic pain; D72.823 Leukemoid reaction; E87.6 Hypokalemia; F17.200 Nicotine dependence, unspecified, uncomplicated; I73.9 Peripheral vascular disease, unspecified; J44.9 Chronic obstructive pulmonary disease, unspecified; M19.90 Unspecified osteoarthritis, unspecified site; M79.7 Fibromyalgia; Z90.710 Acquired absence of both cervix and uterus; Z98.891 History of uterine scar from previous surgery; K52.9 Noninfective gastroenteritis and colitis, unspecified; Z88.1 Allergy status to other antibiotic agents; K44.9 Diaphragmatic hernia without obstruction or gangrene
CPT/HCPCS: 36415; 43239; 71045; 74177; 80048; 80053; 81001; 82550; 83605; 83880; 84132; 84484; 85025; 85027; 85610; 85730; 87040; 88305; 88342; 93005; 93306; 94760; 97039; G0378; J0696; J1940; J2405; J3480; J3490; J7030; Q9967

== ENCOUNTER 2019-12-05 23:26 | Inpatient (IN) | payer MEDICARE ==
[~2019-12-05] VITALS: Ht 175.3 cm; Wt 41.5 kg
[~2019-12-05 23:26] MED LIST changes: +LINA1TAB5 PO
[2019-12-05 23:54] LABS: BASOPHILS % (AUTO) 0.2 % (0.0-5.0); EOSINOPHILS % (AUTO) 0.1 % (0.0-8.0); HEMATOCRIT 33.7 % (36-48); LYMPHOCYTES % (AUTO) 14.9 % (21.0-51.0); MEAN CORPUSCULAR HEMOGLOBIN 33.1 pg (27.0-33.0); MEAN CORPUSCULAR HGB CONC 32.9 g/dL (32.0-36.0); MEAN CORPUSCULAR VOLUME 100.6 fL (79-99); MONOCYTES % (AUTO) 12.1 % (3.0-13.0); NEUTROPHILS % (AUTO) 72.4 % (40.0-77.0); PLATELET COUNT (AUTO) 441 K/uL (130-400); RED BLOOD CELL COUNT(AUTO) 3.35 MIL/uL (4.00-5.50); RED CELL DISTRIBUTION WIDTH 13.2 % (11.0-15.5); WHITE BLOOD COUNT (AUTO) 14.7 K/uL (4.8-10.8)
[2019-12-05] MEDS ORDERED: FUROSEMIDE 10 MG/ML 4ML VIAL ONE (23:58)
[2019-12-05] MEDS ORDERED: MORPHINE SULFATE 4 MG/1ML SYG ONE (23:58)
[2019-12-06 00:03] LABS: CREATININE 0.4 mg/dL (0.5-1.5); POTASSIUM 3.8 mmol/L (3.5-5.1)
[2019-12-06 00:09] LABS: ALBUMIN 1.8 g/dL (3.5-5.0); BILIRUBIN,TOTAL 0.3 mg/dL (0.2-1.0); TOTAL PROTEIN, SERUM 5.3 g/dL (6.0-8.3)
[2019-12-06 00:16] LABS: B-TYPE NATRIURETIC PEPTIDE 64 pg/mL (0-100)
[2019-12-06 01:03] LABS: APPEARANCE,URINE Clear (CLEAR); BILIRUBIN,URINE Negative (NEGATIVE); COLOR,URINE Yellow (YELLOW); GLUCOSE, URINE (UA) Negative (NEGATIVE); KETONES,URINE Negative (NEGATIVE); LEUKOCYTE ESTERASE ,URINE Negative (NEGATIVE); NITRATE,URINE Negative (NEGATIVE); OCCULT BLOOD,URINE Negative (NEGATIVE); PH,URINE 5.5 (5.0-8.0); PROTEIN,URINE Negative (NEGATIVE)
[2019-12-06] MEDS ORDERED: ZOSYN 3.375GM+NS 50ML 50 ML IV ONE (01:18)
[2019-12-06] MEDS ORDERED: VANCOMYCIN PROTOCOL PER PHARMACY IV SCH (01:30)
[2019-12-06] MEDS ORDERED: VANCOMYCIN 1GM+NS 250ML 250 ML IV SCH (02:00)
[2019-12-06] MEDS: IPRATROPIUM/ALBUTEROL SULFATE 3 ML SOLUTION IH SCH ×6 (02:27→22:00)
[2019-12-06] MEDS ORDERED: DEXAMETHASONE SOD PHOSPHATE 10MG/ML 1ML VIAL ONE (02:36)
[2019-12-06] MEDS ORDERED: ENOXAPARIN SODIUM 40 MG/0.4 ML SYRINGE SQ ONE (02:36)
[2019-12-06] MEDS ORDERED: VANCOMYCIN 1GM+NS 250ML 250 ML IV ONE (02:39)
[2019-12-06] MEDS: ZOSYN 3.375GM+NS 50ML 50 ML IV SCH ×3 (04:00→19:53)
[2019-12-06] MEDS: MORPHINE SULFATE 2 MG/ML 1ML SYG IVP PRN ×4 (05:02→18:52)
[2019-12-06] MEDS ORDERED: COMPOUND IV REFRIGERATED 1 EACH IVSOLN MISC PRN (06:30)
[2019-12-06 08:00] VITALS: BP 125/82
[2019-12-06] MEDS: SODIUM CHLORIDE 0.9% 1000ML 1,000 ML IV SCH (09:00)
[2019-12-06] MEDS: VANCOMYCIN 750MG + NS 250 ML IV SCH ×4 (10:18→21:55)
--- NOTE | 2019-12-06 10:59 | NUR ---
Duoneb not administered due to med not recommended for pts who are COVID positive. Some non productive couging noted. No other signs of respiratory distress noted. O2 @ 15L via nonrebreather face mask. Will continue to monitor.
[2019-12-06 12:00] VITALS: BP 135/83
[2019-12-06 16:27] VITALS: BP 140/86
[2019-12-06 20:40] VITALS: BP 156/83
[2019-12-06 23:00] VITALS: BP 156/82
[2019-12-07] MEDS: MORPHINE SULFATE 2 MG/ML 1ML SYG IVP PRN ×4 (00:10→20:25)
[2019-12-07] MEDS ORDERED: PRIM250T24 PO (01:15)
[2019-12-07] MEDS ORDERED: MULT-1367 PO (01:15)
[2019-12-07] MEDS ORDERED: MECL-183 PO (01:15)
[2019-12-07] MEDS ORDERED: ESOM40CA PO (01:15)
[2019-12-07] MEDS ORDERED: SERT25TA5 PO (01:15)
[2019-12-07] MEDS ORDERED: LIPA1CAP36 PO (01:15)
[2019-12-07] MEDS ORDERED: UMEC62.5 IH (01:15)
[2019-12-07] MEDS ORDERED: MEGE40TA22 PO (01:15)
[2019-12-07] MEDS ORDERED: POTA99TA21 PO (01:15)
[2019-12-07] MEDS ORDERED: TYL4 PO (01:15)
[2019-12-07] MEDS ORDERED: ALEN70TA10 PO (01:18)
[2019-12-07] MEDS ORDERED: ATOR40TA69 PO (01:18)
[2019-12-07] MEDS ORDERED: LISI-613 PO (01:18)
[2019-12-07] MEDS: SODIUM CHLORIDE 0.9% 1000ML 1,000 ML IV SCH (01:30)
[2019-12-07] MEDS: IPRATROPIUM/ALBUTEROL SULFATE 3 ML SOLUTION IH SCH ×4 (02:00→13:43)
[2019-12-07] MEDS: ZOSYN 3.375GM+NS 50ML 50 ML IV SCH ×3 (04:25→20:23)
[2019-12-07 04:38] VITALS: BP 175/74
[2019-12-07 08:30] VITALS: BP 188/80
[2019-12-07] MEDS: VANCOMYCIN 750MG + NS 250 ML IV SCH ×4 (09:20→20:24)
[2019-12-07 11:53] VITALS: BP 150/116
[2019-12-07] MEDS ORDERED: DEXAMETHASONE 4 MG TAB PO SCH (13:30)
--- NOTE | 2019-12-07 16:09 | NUR ---
DC PLAN PATIENT LIVES WITH MOTHER WHO IS 84 YRS OLD. PATIENT HAS NO SERVICES. DME WHEEL CHAIR. PLAN TO RETURN HOME. Addendum: 12/07/19 at 1610 by RADHA LOMAS RN CM Amended: Links added.
[2019-12-07] MEDS ORDERED: ERGOCALCIFEROL (VITAMIN D2) 50,000 UNIT CAPSULE PO SCH (16:15)
[2019-12-07] MEDS ORDERED: HYDRALAZINE HCL 20 MG/ML VIAL IV PRN (16:30)
[2019-12-07] MEDS ORDERED: PHARMACY COMMUNICATION MISC SCH (16:30)
[2019-12-07] MEDS ORDERED: ALBUTEROL INHALER 90MCG/INH IH PRN (16:30)
[2019-12-07] MEDS: ZINC SULFATE 220 CAPSULE PO SCH (17:09)
[2019-12-07] MEDS: METHYLPREDNISOLONE SOD SUCC 40MG/ML 1ML IVP SCH ×2 (17:09→20:24)
[2019-12-07] MEDS: ASCORBIC ACID 500 MG TAB PO SCH (17:09)
[2019-12-07 17:30] VITALS: BP 179/82
[2019-12-07] MEDS ORDERED: ONDANSETRON HCL 4 MG/2 ML VIAL ONE (18:34)
[2019-12-07] MEDS: ENOXAPARIN SODIUM 40 MG/0.4 ML SYRINGE SQ SCH (20:24)
[2019-12-07] MEDS: LISINOPRIL 10 MG TABLET PO SCH (20:24)
[2019-12-07 20:35] VITALS: BP 112/74
[2019-12-08] VITALS (7 sets, daily range): BP systolic 102–138; BP diastolic 58–92
[2019-12-08] MEDS: MORPHINE SULFATE 2 MG/ML 1ML SYG IVP PRN ×5 (00:32→21:30)
[2019-12-08] MEDS: SODIUM CHLORIDE 0.9% 1000ML 1,000 ML IV SCH (00:34)
[2019-12-08] MEDS: ZOSYN 3.375GM+NS 50ML 50 ML IV SCH ×3 (03:41→21:00)
--- NOTE | 2019-12-08 05:40 | NUR ---
received report from sia montes nurse, assumed care, head to toe assessment done, shift assessment done, 24 cc done, timed medication given see emar, pain medication given pre and post pain assessment done, safety maintained.
[2019-12-08 06:12] LABS: BASOPHILS % (AUTO) 0.1 % (0.0-5.0); HEMATOCRIT 34.2 % (36-48); LYMPHOCYTES % (AUTO) 11.7 % (21.0-51.0); MEAN CORPUSCULAR HEMOGLOBIN 33.1 pg (27.0-33.0); MEAN CORPUSCULAR HGB CONC 32.7 g/dL (32.0-36.0); MEAN CORPUSCULAR VOLUME 101.2 fL (79-99); MONOCYTES % (AUTO) 3.1 % (3.0-13.0); NEUTROPHILS % (AUTO) 84.5 % (40.0-77.0); PLATELET COUNT (AUTO) 423 K/uL (130-400); RED BLOOD CELL COUNT(AUTO) 3.38 MIL/uL (4.00-5.50); RED CELL DISTRIBUTION WIDTH 12.9 % (11.0-15.5); WHITE BLOOD COUNT (AUTO) 10.1 K/uL (4.8-10.8)
[2019-12-08 06:24] LABS: ALBUMIN 1.5 g/dL (3.5-5.0); BILIRUBIN,TOTAL 0.4 mg/dL (0.2-1.0); TOTAL PROTEIN, SERUM 4.6 g/dL (6.0-8.3)
[2019-12-08 06:27] LABS: CREATININE 0.3 mg/dL (0.5-1.5)
[2019-12-08] MEDS: ASCORBIC ACID 500 MG TAB PO SCH (08:07)
[2019-12-08] MEDS: ENOXAPARIN SODIUM 40 MG/0.4 ML SYRINGE SQ SCH ×2 (08:08→22:18)
[2019-12-08] MEDS: LISINOPRIL 10 MG TABLET PO SCH (08:08)
[2019-12-08] MEDS: ONDANSETRON HCL 4 MG/2 ML VIAL IVP PRN ×2 (08:08→17:15)
[2019-12-08] MEDS: ZINC SULFATE 220 CAPSULE PO SCH (08:08)
[2019-12-08] MEDS: METHYLPREDNISOLONE SOD SUCC 40MG/ML 1ML IVP SCH ×3 (08:08→22:18)
[2019-12-08] MEDS: VANCOMYCIN 750MG + NS 250 ML IV SCH ×4 (08:11→22:18)
[2019-12-08 13:58] LABS: INR 1.31 (0.85-1.15)
--- NOTE | 2019-12-08 20:52 | NUR ---
PT WAS VERY DIFFICULT TO ACCESS PICC LINE. RIGHT ARM BASILIC VEIN WAS UNSUCCESSFULLY TRIED TWICE. BASILIC VEIN WAS ACCESSED BUT UNABLE TO ADVANCE PICC PAST THE AXILLARY VEIN, DESPITED MULTIPLE MANEUVERS AND POSITION CHANGES. RIGHT BRACHIAL VEIN ALSO HAD DIFFICULTY. THERE IS SOME POINT OF OBSTRUCTION AT AXILLARY REGION. LEFT ARM WAS SUCCESSFULLY ACCESSED WITH 5 FR 2 LUMEN PICC AT BASILIC VEIN. CATHETER WAS LEFT UNCUT AT 50CM WITH 45CM INTERNAL CATHETER AND 5CM EXTERNAL CATHETER. STAT TACK WITH SHERLOCK APPLIED AND TEGADERM DRESSING PLACE ASEPTICALLY. ALL ATTEMPTS AT PICC PLACEMENT DONE USING ASEPTIC TECHNIQUE. BOTH LUMENS HAVE GOOD BLOOD RETURN, FLUSHED AND CLAMP. (+) VPS BULLSEYE INDICATES PICC TIP IS AT LOWER 1/3 OF SVC OR AT CAJ. PICC IS OK TO USE PER PROTOCOL. LATASHA JUNIOR AWARE.
[2019-12-09] MEDS: SODIUM CHLORIDE 0.9% 1000ML 1,000 ML IV SCH (00:25)
[2019-12-09] MEDS: MORPHINE SULFATE 2 MG/ML 1ML SYG IVP PRN ×5 (01:30→22:10)
[2019-12-09 03:00] VITALS: BP 137/84
[2019-12-09 03:44] LABS: BASOPHILS % (AUTO) 0.1 % (0.0-5.0); HEMATOCRIT 30.4 % (36-48); LYMPHOCYTES % (AUTO) 10.4 % (21.0-51.0); MEAN CORPUSCULAR HGB CONC 32.9 g/dL (32.0-36.0); MEAN CORPUSCULAR VOLUME 100.3 fL (79-99); MONOCYTES % (AUTO) 7.2 % (3.0-13.0); NEUTROPHILS % (AUTO) 81.5 % (40.0-77.0); PLATELET COUNT (AUTO) 381 K/uL (130-400); RED BLOOD CELL COUNT(AUTO) 3.03 MIL/uL (4.00-5.50); RED CELL DISTRIBUTION WIDTH 12.8 % (11.0-15.5); WHITE BLOOD COUNT (AUTO) 14.2 K/uL (4.8-10.8)
[2019-12-09 04:08] LABS: ALBUMIN 1.4 g/dL (3.5-5.0); BILIRUBIN,TOTAL 0.3 mg/dL (0.2-1.0); CREATININE 0.6 mg/dL (0.5-1.5); CRP QUANTITATIVE 42.4 mg/L (0.00-9.0); POTASSIUM 3.7 mmol/L (3.5-5.1); TOTAL PROTEIN, SERUM 4.2 g/dL (6.0-8.3)
[2019-12-09] MEDS: ZOSYN 3.375GM+NS 50ML 50 ML IV SCH ×3 (05:00→20:00)
[2019-12-09] MEDS: METHYLPREDNISOLONE SOD SUCC 40MG/ML 1ML IVP SCH ×3 (10:02→21:00)
[2019-12-09] MEDS: ZINC SULFATE 220 CAPSULE PO SCH (10:02)
[2019-12-09] MEDS: LISINOPRIL 10 MG TABLET PO SCH (10:03)
[2019-12-09] MEDS: ENOXAPARIN SODIUM 40 MG/0.4 ML SYRINGE SQ SCH ×2 (10:03→21:00)
[2019-12-09] MEDS: ASCORBIC ACID 500 MG TAB PO SCH (10:03)
[2019-12-09] MEDS: VANCOMYCIN 750MG + NS 250 ML IV SCH ×4 (10:42→21:00)
[2019-12-09 12:33] VITALS: BP 132/79
[2019-12-09 16:56] VITALS: BP 119/94
[2019-12-09 19:00] VITALS: BP 113/80
[2019-12-09] MEDS: PHARMACY COMMUNICATION MISC SCH (21:00)
[2019-12-09 23:00] VITALS: BP 111/78
[2019-12-10] MEDS: SODIUM CHLORIDE 0.9% 1000ML 1,000 ML IV SCH (01:08)
[2019-12-10] MEDS: MORPHINE SULFATE 2 MG/ML 1ML SYG IVP PRN ×5 (02:10→20:29)
[2019-12-10 03:00] VITALS: BP 113/72
[2019-12-10] MEDS: ZOSYN 3.375GM+NS 50ML 50 ML IV SCH ×3 (05:21→20:28)
[2019-12-10 07:30] LABS: BASOPHILS % (AUTO) 0.1 % (0.0-5.0); EOSINOPHILS % (AUTO) 0.1 % (0.0-8.0); HEMATOCRIT 38.7 % (36-48); LYMPHOCYTES % (AUTO) 14.4 % (21.0-51.0); MEAN CORPUSCULAR HEMOGLOBIN 33.1 pg (27.0-33.0); MEAN CORPUSCULAR HGB CONC 32.6 g/dL (32.0-36.0); MEAN CORPUSCULAR VOLUME 101.6 fL (79-99); MONOCYTES % (AUTO) 11.1 % (3.0-13.0); NEUTROPHILS % (AUTO) 73.7 % (40.0-77.0); PLATELET COUNT (AUTO) 416 K/uL (130-400); RED BLOOD CELL COUNT(AUTO) 3.81 MIL/uL (4.00-5.50); WHITE BLOOD COUNT (AUTO) 19.2 K/uL (4.8-10.8)
[2019-12-10 08:34] LABS: ALBUMIN 1.7 g/dL (3.5-5.0); BILIRUBIN,TOTAL 0.5 mg/dL (0.2-1.0); CREATININE 0.6 mg/dL (0.5-1.5); CRP QUANTITATIVE 26.6 mg/L (0.00-9.0); POTASSIUM 3.6 mmol/L (3.5-5.1); TOTAL PROTEIN, SERUM 5.2 g/dL (6.0-8.3)
[2019-12-10] MEDS: PHARMACY COMMUNICATION MISC SCH ×2 (09:00→21:00)
[2019-12-10 10:25] VITALS: BP 139/81
[2019-12-10] MEDS: ASCORBIC ACID 500 MG TAB PO SCH (10:31)
[2019-12-10] MEDS: LISINOPRIL 10 MG TABLET PO SCH (10:31)
[2019-12-10] MEDS: ZINC SULFATE 220 CAPSULE PO SCH (10:31)
[2019-12-10] MEDS: ENOXAPARIN SODIUM 40 MG/0.4 ML SYRINGE SQ SCH ×2 (10:31→20:28)
[2019-12-10] MEDS: METHYLPREDNISOLONE SOD SUCC 40MG/ML 1ML IVP SCH ×2 (11:42→13:33)
[2019-12-10] MEDS: VANCOMYCIN 750MG + NS 250 ML IV SCH ×4 (11:43→20:28)
[2019-12-10] MEDS: ONDANSETRON HCL 4 MG/2 ML VIAL IVP PRN ×2 (13:33→20:28)
[2019-12-10 13:40] VITALS: BP 124/84
[2019-12-10] MEDS: DEXAMETHASONE 10MG/ML 1ML VIAL 6 MG in SODIUM CHLORIDE 0.9% 50 ML IV SCH (18:34)
--- NOTE | 2019-12-10 18:48 | NUR ---
REDNESS NOTED TO BUTTOCKS AND BILATERAL INGUINAL AREAS. SKIN BARRIER CREAM PLACED ON BUTTOCKS. SMALL AMOUNT OF BRUISING NOTED TO RIGHT FLANK AREA. BRUISING TO BILATERAL EXTREMITIES AND BILATERAL UPPER EXTREMITIES. KERLIX NOTED TO BILATERAL UPPER EXTREMITIES DUE TO WEEPING. SKIN TEAR TO LEFT LOWER ARM WITH DRESSING INTACT TO SITE. REDNESS NOTED TO BILATERAL FEET AND BILATERAL FEET ELEVATED ON CUSHION SHEETS FOR SUPPORT. PATIENT INFORMED TO CONTINUE TO TURN FROM LEFT TO RIGHT TO ASSIST WITH DECREASING SKIN BREAKDOWN TO BUTTOCKS. PATIENT TOLERATED WELL WITH NO PROBLEMS. PATIENT POSITIONED ON RIGHT SIDE WITH NO DISTRESS NOTED AND HEAD OF BED ELEVATED
[2019-12-10 20:00] VITALS: BP 116/72
[2019-12-10] MEDS ORDERED: HYDROMORPHONE HCL 0.5 MG/0.5 ML ML ONE (23:50)
[2019-12-11] VITALS (10 sets, daily range): BP systolic 114–145; BP diastolic 65–84
[2019-12-11] MEDS ORDERED: HYDROMORPHONE HCL 0.5 MG/0.5 ML ML IVP ONE
[2019-12-11] MEDS: SODIUM CHLORIDE 0.9% 1000ML 1,000 ML IV SCH (01:30)
[2019-12-11] MEDS: ZOSYN 3.375GM+NS 50ML 50 ML IV SCH ×3 (03:07→20:11)
[2019-12-11 04:08] LABS: HEMATOCRIT 31.2 % (36-48); MEAN CORPUSCULAR HEMOGLOBIN 32.9 pg (27.0-33.0); MEAN CORPUSCULAR HGB CONC 33.7 g/dL (32.0-36.0); MEAN CORPUSCULAR VOLUME 97.8 fL (79-99); PLATELET COUNT (AUTO) 366 K/uL (130-400); RED BLOOD CELL COUNT(AUTO) 3.19 MIL/uL (4.00-5.50); RED CELL DISTRIBUTION WIDTH 12.8 % (11.0-15.5)
[2019-12-11 04:19] LABS: ALANINE AMINOTRANSFERASE 13 U/L (12-78); ALBUMIN 1.5 g/dL (3.5-5.0); AMYLASE 25 U/L (25-115); ASPARTATE AMINOTRANSFERASE 19 U/L (10-37); BILIRUBIN,TOTAL 0.4 mg/dL (0.2-1.0); CARBON DIOXIDE 29 mmol/L (21-32); CHLORIDE 97 mmol/L (101-111); CREATININE 0.5 mg/dL (0.5-1.5); GLOMERULAR FILTR. RATE CALC 132 mL/min (>60); GLUCOSE,RANDOM 104 mg/dL (70-105); POTASSIUM 3.9 mmol/L (3.5-5.1); SODIUM SERUM 132 mmol/L (136-145); TOTAL PROTEIN, SERUM 4.4 g/dL (6.0-8.3); UREA NITROGEN, BLOOD 10 mg/dL (7-18)
[2019-12-11 04:25] LABS: LIPASE < 50 U/L (114-286)
[2019-12-11] MEDS: MORPHINE SULFATE 2 MG/ML 1ML SYG IVP PRN ×5 (04:28→22:47)
[2019-12-11 04:53] LABS: LYMPHOCYTES % (MANUAL) 7 % (22-44); MAN.DIFF COMMENT-IMPRESSION MANUAL DIFFERENTIAL; MONOCYTES % (MANUAL) 3 % (2-9); SEGMENTED NEUTROPHILS % 90 % (40-70)
[2019-12-11] MEDS: PHARMACY COMMUNICATION MISC SCH ×2 (09:00→21:00)
[2019-12-11] MEDS: ENOXAPARIN SODIUM 40 MG/0.4 ML SYRINGE SQ SCH ×2 (09:31→20:11)
[2019-12-11] MEDS: FAMOTIDINE 20MG TAB 20 MG TAB PO SCH (09:31)
[2019-12-11] MEDS: ASCORBIC ACID 500 MG TAB PO SCH (09:32)
[2019-12-11] MEDS: ZINC SULFATE 220 CAPSULE PO SCH (09:32)
[2019-12-11] MEDS: ONDANSETRON HCL 4 MG/2 ML VIAL IVP PRN ×2 (09:32→22:47)
[2019-12-11] MEDS: LISINOPRIL 10 MG TABLET PO SCH (09:33)
[2019-12-11] MEDS ORDERED: VANCOMYCIN 750MG + NS 250 ML IV SCH ×2 (11:30)
[2019-12-11] MEDS: DEXAMETHASONE 10MG/ML 1ML VIAL 6 MG in SODIUM CHLORIDE 0.9% 50 ML IV SCH (11:35)
[2019-12-11] MEDS: VANCOMYCIN 750MG + NS 250 ML IV SCH ×4 (11:37→22:47)
--- NOTE | 2019-12-11 18:28 | NUR ---
Right and left heel with pitting edema noted and foot potential foot drop. No skin breakdown to bilateral feet or heels. Appears less redness to bilateral heels due to patient turning to right and left side. Bilateral heels padded for cushion with 4x4 gauze and secured with kerlix and tape. No tape secured to skin. bilateral heels elevated with heels off of bed. Resting well and states her feet feel better. Patient verbalize understanding of turn schedule and educated on the importance of turning every two hours. Kerlix gauze reinforced to right upper arm with small amount of drainage noted. Lower left arm skin tears noted with small amount of drainage noted. Site cleaned with Normal saline and pat dry. two non adherent pad placed on sites and secured with kerlix and tape. No tape touching skin. patient tolerated well with no problems. will continue to monitor as needed.
[2019-12-11] MEDS ORDERED: ACETAMINOPHEN-CODEINE 300/30MG TAB PO PRN (22:00)
[2019-12-12] MEDS: ACETAMINOPHEN-CODEINE 300/30MG TAB PO PRN ×4 (02:07→22:50)
[2019-12-12 03:39] VITALS: BP 139/75
[2019-12-12] MEDS: MORPHINE SULFATE 2 MG/ML 1ML SYG IVP PRN ×4 (05:31→20:41)
[2019-12-12] MEDS: ZOSYN 3.375GM+NS 50ML 50 ML IV SCH ×3 (05:31→20:33)
[2019-12-12 07:00] VITALS: BP 137/83
[2019-12-12] MEDS: VANCOMYCIN 750MG + NS 250 ML IV SCH ×4 (08:56→22:02)
[2019-12-12] MEDS: ZINC SULFATE 220 CAPSULE PO SCH (08:57)
[2019-12-12] MEDS: ENOXAPARIN SODIUM 40 MG/0.4 ML SYRINGE SQ SCH ×2 (08:57→20:34)
[2019-12-12] MEDS: LISINOPRIL 10 MG TABLET PO SCH (08:58)
[2019-12-12] MEDS: ASCORBIC ACID 500 MG TAB PO SCH (08:58)
[2019-12-12] MEDS: FAMOTIDINE 20MG TAB 20 MG TAB PO SCH (08:58)
[2019-12-12] MEDS: PHARMACY COMMUNICATION MISC SCH ×2 (09:00→21:00)
[2019-12-12] MEDS: DEXAMETHASONE 10MG/ML 1ML VIAL 6 MG in SODIUM CHLORIDE 0.9% 50 ML IV SCH (09:02)
[2019-12-12 11:00] VITALS: BP 144/90
[2019-12-12] MEDS ORDERED: COMPOUND IV MISC 1 EACH IVSOLN MISC PRN (12:00)
[2019-12-12 15:00] VITALS: BP_SYST 125; BP_SYST 153; BP_DIAS 76
--- NOTE | 2019-12-12 20:00 | NUR ---
Remedesivir Pharmacist on duty Ana called to inform me that the patient does not meet criteria for Remedesivir per hospital protocol. She stated the reason for patient's ineligibility was because she was not sick enough. Note entered by pharmacist for nursing to communicate if patient's condition worsens. Will continue to monitor patient status.
[2019-12-12 21:21] VITALS: BP 130/79
--- NOTE | 2019-12-12 23:10 | NUR ---
Picc Line Picc Line dressing noted to be wet due to patient leaking tissues, dressing changed completed at this time. Both lumens of the PICC line flushed and assessed for blood return. Blood return noted to both lumens at this time. PICC line caps noted to have resulted in an abrasion to the site. Site covered with kerlix to prevent further injury to the site.
[2019-12-13 00:52] VITALS: BP 145/91
[2019-12-13] MEDS: MORPHINE SULFATE 2 MG/ML 1ML SYG IVP PRN ×8 (01:07→22:36)
[2019-12-13] MEDS: SODIUM CHLORIDE 0.9% 1000ML 1,000 ML IV SCH (01:30)
[2019-12-13] MEDS: ACETAMINOPHEN-CODEINE 300/30MG TAB PO PRN ×4 (02:53→21:26)
[2019-12-13] MEDS: ZOSYN 3.375GM+NS 50ML 50 ML IV SCH ×3 (03:53→20:01)
[2019-12-13 04:24] LABS: BASOPHILS % (AUTO) 0.1 % (0.0-5.0); HEMATOCRIT 29.1 % (36-48); LYMPHOCYTES % (AUTO) 26.4 % (21.0-51.0); MEAN CORPUSCULAR HEMOGLOBIN 32.9 pg (27.0-33.0); MEAN CORPUSCULAR VOLUME 99.7 fL (79-99); MONOCYTES % (AUTO) 8.7 % (3.0-13.0); NEUTROPHILS % (AUTO) 59.4 % (40.0-77.0); PLATELET COUNT (AUTO) 267 K/uL (130-400); RED BLOOD CELL COUNT(AUTO) 2.92 MIL/uL (4.00-5.50); WHITE BLOOD COUNT (AUTO) 10.3 K/uL (4.8-10.8)
[2019-12-13 04:53] LABS: ALBUMIN 1.3 g/dL (3.5-5.0); BILIRUBIN,TOTAL 0.4 mg/dL (0.2-1.0); CREATININE 0.4 mg/dL (0.5-1.5); CRP QUANTITATIVE 18.2 mg/L (0.00-9.0)
[2019-12-13 05:08] LABS: POTASSIUM 2.8 mmol/L (3.5-5.1)
[2019-12-13] MEDS ORDERED: POTASSIUM CHLORIDE 20MEQ/100ML 100 ML IV ONE (05:26)
[2019-12-13] MEDS ORDERED: POTASSIUM CHLORIDE 20 MEQ ERTAB PO PRN (05:30)
[2019-12-13] MEDS ORDERED: LIDOCAINE HCL-MPF 1% 2ML VIAL IV PRN (05:30)
[2019-12-13 06:01] VITALS: BP 113/75
[2019-12-13] MEDS: PHARMACY COMMUNICATION MISC SCH ×2 (09:00→19:46)
[2019-12-13] MEDS: ASCORBIC ACID 500 MG TAB PO SCH (10:30)
[2019-12-13] MEDS: ZINC SULFATE 220 CAPSULE PO SCH (10:30)
[2019-12-13] MEDS: VANCOMYCIN 750MG + NS 250 ML IV SCH ×4 (10:30→20:01)
[2019-12-13] MEDS: FAMOTIDINE 20MG TAB 20 MG TAB PO SCH (10:30)
[2019-12-13] MEDS: LISINOPRIL 10 MG TABLET PO SCH (10:30)
[2019-12-13] MEDS: DEXAMETHASONE 10MG/ML 1ML VIAL 6 MG in SODIUM CHLORIDE 0.9% 50 ML IV SCH (10:31)
[2019-12-13] MEDS: ENOXAPARIN SODIUM 40 MG/0.4 ML SYRINGE SQ SCH ×2 (10:31→20:01)
[2019-12-13 11:48] VITALS: BP 140/92
[2019-12-13 16:10] VITALS: BP 128/89
[2019-12-13 19:42] VITALS: BP 91/67
[2019-12-13 23:04] VITALS: BP 140/74
[2019-12-14] VITALS (7 sets, daily range): BP systolic 91–135; BP diastolic 53–80
[2019-12-14] MEDS: SODIUM CHLORIDE 0.9% 1000ML 1,000 ML IV SCH (00:59)
[2019-12-14] MEDS: ACETAMINOPHEN-CODEINE 300/30MG TAB PO PRN ×3 (02:00→19:00)
[2019-12-14] MEDS: MORPHINE SULFATE 2 MG/ML 1ML SYG IVP PRN ×4 (02:00→20:46)
[2019-12-14] MEDS: ZOSYN 3.375GM+NS 50ML 50 ML IV SCH ×3 (03:27→20:45)
[2019-12-14 04:42] LABS: BASOPHILS % (AUTO) 0.2 % (0.0-5.0); EOSINOPHILS % (AUTO) 3.6 % (0.0-8.0); HEMATOCRIT 28.1 % (36-48); LYMPHOCYTES % (AUTO) 28.4 % (21.0-51.0); MEAN CORPUSCULAR HEMOGLOBIN 32.9 pg (27.0-33.0); MEAN CORPUSCULAR HGB CONC 33.1 g/dL (32.0-36.0); MEAN CORPUSCULAR VOLUME 99.3 fL (79-99); MONOCYTES % (AUTO) 9.5 % (3.0-13.0); NEUTROPHILS % (AUTO) 57.9 % (40.0-77.0); PLATELET COUNT (AUTO) 321 K/uL (130-400); RED BLOOD CELL COUNT(AUTO) 2.83 MIL/uL (4.00-5.50); RED CELL DISTRIBUTION WIDTH 13.2 % (11.0-15.5); WHITE BLOOD COUNT (AUTO) 12.1 K/uL (4.8-10.8)
[2019-12-14 05:01] LABS: ALBUMIN 1.4 g/dL (3.5-5.0); BILIRUBIN,TOTAL 0.4 mg/dL (0.2-1.0); CREATININE 0.4 mg/dL (0.5-1.5); CRP QUANTITATIVE 16.3 mg/L (0.00-9.0); POTASSIUM 3.2 mmol/L (3.5-5.1)
[2019-12-14] MEDS: POTASSIUM CHLORIDE 10% ELIXIR 20 MEQ/15 ML UDCUP PO PRN ×3 (05:51→10:07)
[2019-12-14] MEDS: PHARMACY COMMUNICATION MISC SCH ×2 (09:00→20:45)
[2019-12-14] MEDS: ASCORBIC ACID 500 MG TAB PO SCH (09:35)
[2019-12-14] MEDS: ZINC SULFATE 220 CAPSULE PO SCH (09:35)
[2019-12-14] MEDS: FAMOTIDINE 20MG TAB 20 MG TAB PO SCH (09:35)
[2019-12-14] MEDS: LISINOPRIL 10 MG TABLET PO SCH (09:36)
[2019-12-14] MEDS: ENOXAPARIN SODIUM 40 MG/0.4 ML SYRINGE SQ SCH ×2 (09:37→20:45)
[2019-12-14] MEDS: DEXAMETHASONE 10MG/ML 1ML VIAL 6 MG in SODIUM CHLORIDE 0.9% 50 ML IV SCH (10:00)
[2019-12-14] MEDS: VANCOMYCIN 750MG + NS 250 ML IV SCH ×2 (10:00)
[2019-12-14] MEDS: ONDANSETRON HCL 4 MG/2 ML VIAL IVP PRN (10:40)
--- NOTE | 2019-12-14 10:46 | NUR ---
PT VOMITING AT THIS TIME. ONDANSETRON 4MG IVP GIVEN. PT HAVE BEEN DECLINING TO EAT, EDUCATED ON NUTRITION REQUIREMENTS AND POC. POTASSIUM WAS LOW THIS AM AND NS RN GAVE POTASSIUM ELIXIR. PATIENT HAVE REFUSED THE SECOND DOSE C/O UPSET STOMACH. WILL REPLACE POTASSIUM INTRAVENOUSLY, PT HAVE A PICC LINE.
--- NOTE | 2019-12-14 12:28 | NUR ---
RDSCREEN - LOS X 8, BMI 14.0 Pt admitted with Pneumonia. Myeloproliferative state. Severe malnutrition. Decreased appetite. Pt reports Nausea this AM, Zofran now in place. BLE 4+/BUE 2+ pitting edema. L-Buttock and Calf wounds. Nasal Cannula in place, PICC line in place. Vitamin C and Zinc supplementation in place. Recommend Ensure TID with meals Recommend 1200mL Fluid Restriction due to severe edema Recommend Jose BID for wound healing support If PO intake does not improve, recommend supplemental or total alternative measures of nutrition RD to continue to monitor. Please notify as additional nutrition concerns arise. Thank you. Addendum: 12/14/19 at [address] Amended: Links added.
--- NOTE | 2019-12-14 13:05 | NUR ---
PT TO EVAL AND TREAT ORDER PLACED. PHONE CALL TO PT PER DR DÍAZ ORDERS. BUSINESS EDUCATION INSTRUCTOR NOT IN HOUSE AT THIS TIME, WILL BE NOTIFIED SOON HE ARRIVES. WILL CALL AGAIN AT 1500.
--- NOTE | 2019-12-14 13:59 | NUR ---
PHYSICAL THERAPY EVALUATED PATIENT AND MADE RECOMMENDATIONS TO TRANSFER TO [facility] SKILLED NURSE FACILITY. PER PT REPORT THIS PATIENT IS WELL KNOWN TO THEM AND WAS PREVIOUSLY RECOMMENDED TO GO TO A FACILITY DURING PREVIOUS VISIT. PER REPORT PATIENT VERBALIZED UNDERSTANDING ON RECOMMENDATIONS.
[2019-12-14] MEDS: POTASSIUM CHLORIDE 20MEQ/100ML 100 ML IV PRN ×2 (15:48→18:58)
[2019-12-14] MEDS ORDERED: DULOXETINE HCL 30 MG CAP PO SCH (17:00)
[2019-12-14] MEDS ORDERED: POTASSIUM CHLORIDE 20 MEQ ERTAB PO SCH (17:00)
[2019-12-14] MEDS ORDERED: ERGOCALCIFEROL (VITAMIN D2) 50,000 UNIT CAPSULE PO SCH (17:00)
[2019-12-14] MEDS: LUBIPROSTONE 24 MCG CAP PO SCH (17:45)
--- NOTE | 2019-12-14 17:59 | NUR ---
PT RECEIVING 3RD DOSE OF 20 MEQ OF POTASSIUM IV THRU PICC LINE. FIRST DOSE GIVEN PO THIS AM BUT PT C/O NAUSEA AND VOMITING. DISCUSSED WITH DR DÍAZ. OK TO ADMINISTER POTASSIUM IVPB.
--- NOTE | 2019-12-14 19:02 | NUR ---
PT CHANGED AND TURNED, BECAME TACHY ON 130'S. PT C/O PAIN ON HER BEHIND. PT STATED "I WILL PAY TO BE SLEEPING AND NOT FEELING ANYTHING". PAIN MEDICATION GIVEN. WILL CONTINUE TO MONITOR.
[2019-12-14] MEDS: PREGABALIN 75 MG CAPSULE PO SCH (20:45)
--- NOTE | 2019-12-15 01:54 | NUR ---
RECEIVED REPORT FROM AM NURSE, ASSUMED CARE, SHIFT ASSESSMENT DONE, TIMED MEDICATION GIVEN, PAIN MEDICATION GIVEN SEE EMAR, PRE AND POST PAIN ASSESSMENT DONE, 24 CC DONE, SAFETY MAINTAINED, BED IN LOWEST POSITION, CALL DURAN IN REACHED, WILL CONTINUE TO MONITOR.
[2019-12-15] MEDS: ONDANSETRON HCL 4 MG/2 ML VIAL IVP PRN (03:08)
[2019-12-15 03:09] VITALS: BP 105/65
[2019-12-15] MEDS: MORPHINE SULFATE 2 MG/ML 1ML SYG IVP PRN ×3 (03:09→15:24)
[2019-12-15] MEDS: ZOSYN 3.375GM+NS 50ML 50 ML IV SCH ×3 (03:09→21:13)
[2019-12-15 05:05] LABS: BASOPHILS % (AUTO) 0.2 % (0.0-5.0); EOSINOPHILS % (AUTO) 1.9 % (0.0-8.0); HEMATOCRIT 27.8 % (36-48); LYMPHOCYTES % (AUTO) 21.1 % (21.0-51.0); MEAN CORPUSCULAR HEMOGLOBIN 33.5 pg (27.0-33.0); MEAN CORPUSCULAR HGB CONC 33.5 g/dL (32.0-36.0); MONOCYTES % (AUTO) 11.6 % (3.0-13.0); NEUTROPHILS % (AUTO) 64.7 % (40.0-77.0); PLATELET COUNT (AUTO) 386 K/uL (130-400); RED BLOOD CELL COUNT(AUTO) 2.78 MIL/uL (4.00-5.50); RED CELL DISTRIBUTION WIDTH 13.4 % (11.0-15.5); WHITE BLOOD COUNT (AUTO) 16.5 K/uL (4.8-10.8)
--- NOTE | 2019-12-15 05:24 | NUR ---
CONTACT AND SPOKE WITH MARTA VOICE INSTRUCTOR, INFORMED PT WBC 16.5, PUT ORDERS IN CPOM.
[2019-12-15 05:40] LABS: ALBUMIN 1.5 g/dL (3.5-5.0); BILIRUBIN,TOTAL 0.4 mg/dL (0.2-1.0); CREATININE 0.5 mg/dL (0.5-1.5); POTASSIUM 3.8 mmol/L (3.5-5.1); TOTAL PROTEIN, SERUM 4.3 g/dL (6.0-8.3)
--- NOTE | 2019-12-15 06:04 | NUR ---
pt given pain medication, pre and post assessment done, collected set of blood culture, pulled mcdaniel, pt tolerated well. safety maintained.
[2019-12-15] MEDS: ACETAMINOPHEN-CODEINE 300/30MG TAB PO PRN ×3 (06:05→12:46)
[2019-12-15 08:20] VITALS: BP 116/76
[2019-12-15] MEDS: PREGABALIN 75 MG CAPSULE PO SCH ×2 (08:57→21:13)
[2019-12-15] MEDS: LUBIPROSTONE 24 MCG CAP PO SCH ×2 (08:57→17:00)
[2019-12-15] MEDS: ZINC SULFATE 220 CAPSULE PO SCH (08:57)
[2019-12-15] MEDS: ASCORBIC ACID 500 MG TAB PO SCH (08:58)
[2019-12-15] MEDS: LISINOPRIL 5 MG TABLET PO SCH (08:58)
[2019-12-15] MEDS: PHARMACY COMMUNICATION MISC SCH (08:59)
[2019-12-15] MEDS: DULOXETINE HCL 30 MG CAP PO SCH (08:59)
[2019-12-15] MEDS: FAMOTIDINE 20MG TAB 20 MG TAB PO SCH (08:59)
[2019-12-15] MEDS: ENOXAPARIN SODIUM 40 MG/0.4 ML SYRINGE SQ SCH ×2 (09:02→21:13)
[2019-12-15] MEDS: DEXAMETHASONE 10MG/ML 1ML VIAL 6 MG in SODIUM CHLORIDE 0.9% 50 ML IV SCH (10:00)
[2019-12-15 12:30] VITALS: BP 120/76
--- NOTE | 2019-12-15 15:41 | NUR ---
RD UPDATE Pt continues on sodium-restricted Heart Healthy diet order. Jose for wound healing support, Ensure for nutrition supplementation in place. Pt also with Vitamin C and Zinc. 4+BLE/2+ BUE edema. Monitored labs: WBC 16.5, Na 134, Alk 184, CRP 21.00, Alb 1.5. Recommend to add diuretic as medically feasible Recommend Fluid restriction of 1200ml per day Recommend 60mL ProMod BID Recommend to continue nutritional supplementation. RD to continue to monitor. Please notify as additional nutrition concerns arise. Thank you.
[2019-12-15 16:50] VITALS: BP 125/78
[2019-12-15 19:00] VITALS: BP 120/79
[2019-12-15 23:00] VITALS: BP 103/75
[2019-12-16] MEDS: ACETAMINOPHEN-CODEINE 300/30MG TAB PO PRN (01:40)
[2019-12-16 03:00] VITALS: BP 109/76
[2019-12-16] MEDS: MORPHINE SULFATE 2 MG/ML 1ML SYG IVP PRN ×4 (03:31→20:35)
[2019-12-16] MEDS: LUBIPROSTONE 24 MCG CAP PO SCH ×2 (09:36→17:00)
[2019-12-16] MEDS: ZINC SULFATE 220 CAPSULE PO SCH (09:36)
[2019-12-16] MEDS: ENOXAPARIN SODIUM 40 MG/0.4 ML SYRINGE SQ SCH ×2 (09:36→20:34)
[2019-12-16] MEDS: ASCORBIC ACID 500 MG TAB PO SCH (09:36)
[2019-12-16] MEDS: FAMOTIDINE 20MG TAB 20 MG TAB PO SCH (09:36)
[2019-12-16] MEDS: DULOXETINE HCL 30 MG CAP PO SCH (09:37)
[2019-12-16] MEDS: LISINOPRIL 5 MG TABLET PO SCH (09:37)
[2019-12-16] MEDS: PREGABALIN 75 MG CAPSULE PO SCH ×2 (09:37→20:34)
[2019-12-16] MEDS: DEXAMETHASONE 10MG/ML 1ML VIAL 6 MG in SODIUM CHLORIDE 0.9% 50 ML IV SCH (10:00)
[2019-12-16 10:09] VITALS: BP 128/62
[2019-12-16] MEDS: ONDANSETRON HCL 4 MG/2 ML VIAL IVP PRN ×2 (11:45→20:35)
[2019-12-16 12:23] VITALS: BP 117/74
--- NOTE | 2019-12-16 15:42 | NUR ---
DC PLAN SPOKE TO [facility] SAID THAT NEED TO WAIT ANOTHER 4 DAYS PRIOR TO HEADING TO [facility]. WANT 14 DAYS AT THE HOSPITAL. Addendum: 12/16/19 at 1543 by RADHA LOMAS RN CM Amended: Links added.
[2019-12-16 16:00] VITALS: BP 125/79
[2019-12-16] MEDS: PANTOPRAZOLE 40 MG/VIAL IVP SCH (20:34)
[2019-12-16 20:35] VITALS: BP 105/73
--- NOTE | 2019-12-16 20:35 | NUR ---
nausea c/o nausea, vomited small amount of brownish gastric secretions, c/o pain, see pain assessment and treatment, zofran 4 mg ivp given to pietro picc line
--- NOTE | 2019-12-16 20:40 | NUR ---
radiology down to radiology via bed for ct abdomen and pelvis with contrast , consent signed, right posterior forearm 20 gauge attempt x1 and successful to be used for ct contrast,
[2019-12-16] MEDS ORDERED: IOHEXOL-350 75 ML VIAL IV ONE (21:12)
--- NOTE | 2019-12-16 21:30 | NUR ---
radiology back from radiology, dressing changed to central line, skin tears of both arms, cleansed with ns, apply xeroform , 4x4 , kerlix roll and tape, tolerated well, nausea subsided
[2019-12-17] VITALS (7 sets, daily range): BP systolic 102–130; BP diastolic 66–84
[2019-12-17] MEDS: ONDANSETRON HCL 4 MG/2 ML VIAL IVP PRN ×2 (02:04→20:29)
[2019-12-17] MEDS: MORPHINE SULFATE 2 MG/ML 1ML SYG IVP PRN ×6 (02:05→23:24)
[2019-12-17] MEDS: FAMOTIDINE 20MG TAB 20 MG TAB PO SCH (08:32)
[2019-12-17] MEDS: DULOXETINE HCL 30 MG CAP PO SCH (08:32)
[2019-12-17] MEDS: LUBIPROSTONE 24 MCG CAP PO SCH ×2 (08:32→17:52)
[2019-12-17] MEDS: PANTOPRAZOLE 40 MG/VIAL IVP SCH ×2 (08:32→20:30)
[2019-12-17] MEDS: PREGABALIN 75 MG CAPSULE PO SCH ×2 (08:32→20:30)
[2019-12-17] MEDS: ASCORBIC ACID 500 MG TAB PO SCH (08:33)
[2019-12-17] MEDS: ZINC SULFATE 220 CAPSULE PO SCH (08:33)
[2019-12-17] MEDS: LISINOPRIL 5 MG TABLET PO SCH (08:33)
[2019-12-17] MEDS: ENOXAPARIN SODIUM 40 MG/0.4 ML SYRINGE SQ SCH ×2 (08:34→20:30)
[2019-12-17] MEDS: DEXAMETHASONE 10MG/ML 1ML VIAL 6 MG in SODIUM CHLORIDE 0.9% 50 ML IV SCH (08:34)
[2019-12-17 09:06] LABS: BASOPHILS % (AUTO) 0.1 % (0.0-5.0); EOSINOPHILS % (AUTO) 0.2 % (0.0-8.0); HEMATOCRIT 27.5 % (36-48); LYMPHOCYTES % (AUTO) 8.9 % (21.0-51.0); MEAN CORPUSCULAR HEMOGLOBIN 33.3 pg (27.0-33.0); MEAN CORPUSCULAR HGB CONC 33.8 g/dL (32.0-36.0); MEAN CORPUSCULAR VOLUME 98.6 fL (79-99); MONOCYTES % (AUTO) 10.7 % (3.0-13.0); NEUTROPHILS % (AUTO) 79.4 % (40.0-77.0); PLATELET COUNT (AUTO) 464 K/uL (130-400); RED BLOOD CELL COUNT(AUTO) 2.79 MIL/uL (4.00-5.50); RED CELL DISTRIBUTION WIDTH 13.7 % (11.0-15.5); WHITE BLOOD COUNT (AUTO) 25.2 K/uL (4.8-10.8)
[2019-12-17 09:24] LABS: ALBUMIN 1.6 g/dL (3.5-5.0); ASPARTATE AMINOTRANSFERASE 13 U/L (10-37); BILIRUBIN,TOTAL 0.6 mg/dL (0.2-1.0); CARBON DIOXIDE 24 mmol/L (21-32); CHLORIDE 100 mmol/L (101-111); CREATININE 0.5 mg/dL (0.5-1.5); GLOMERULAR FILTR. RATE CALC 132 mL/min (>60); GLUCOSE,RANDOM 150 mg/dL (70-105); PHOSPHORUS 2.9 mg/dL (2.5-4.9); POTASSIUM 3.3 mmol/L (3.5-5.1); SODIUM SERUM 136 mmol/L (136-145); TOTAL PROTEIN, SERUM 4.5 g/dL (6.0-8.3); UREA NITROGEN, BLOOD 8 mg/dL (7-18)
[2019-12-17 09:26] LABS: ALANINE AMINOTRANSFERASE < 6 U/L (12-78)
--- NOTE | 2019-12-17 23:22 | NUR ---
Potassium Level Potassium level found to 3.3 with no documentation of treatment per protocol. Potassium oral replacement initiated per protocol. Will evaluate levels in am.
--- NOTE | 2019-12-18 01:40 | NUR ---
Medicated Patient medicated with Tylenol with # 3 1 tablet and K-Dur 20Meq Po as ordered.
--- NOTE | 2019-12-18 02:50 | NUR ---
Magnesium Level Magnesium level 1.3 on last am lab draw 12/16. Magnesium protocol initiated at this time. Will redraw Magnesium levels after completion of replacement infusion.
[2019-12-18] MEDS: MAGNESIUM 2GM PREMIX 50ML 50 ML IV PRN ×2 (02:56→14:36)
[2019-12-18 03:00] VITALS: BP 117/77
--- NOTE | 2019-12-18 03:22 | NUR ---
Potassium Replacement Patient refused to take 3rd dose of K-dur per protocol. She was educated on the benefits of the medication to her recovery. She continues to refuse medication dose at this time. Will evaluate lab per protocol.
[2019-12-18] MEDS: ONDANSETRON HCL 4 MG/2 ML VIAL IVP PRN ×2 (05:07→13:36)
[2019-12-18] MEDS: MORPHINE SULFATE 2 MG/ML 1ML SYG IVP PRN ×5 (05:08→23:00)
--- NOTE | 2019-12-18 06:31 | NUR ---
Hygienic Needs Patient refused to have hygienic needs met stating that she is dry.
[2019-12-18] MEDS: ACETAMINOPHEN-CODEINE 300/30MG TAB PO PRN ×3 (06:55→21:03)
[2019-12-18 07:45] LABS: BASOPHILS % (AUTO) 0.1 % (0.0-5.0); EOSINOPHILS % (AUTO) 0.4 % (0.0-8.0); HEMATOCRIT 27.2 % (36-48); LYMPHOCYTES % (AUTO) 4.9 % (21.0-51.0); MEAN CORPUSCULAR HEMOGLOBIN 33.8 pg (27.0-33.0); MEAN CORPUSCULAR HGB CONC 33.8 g/dL (32.0-36.0); MONOCYTES % (AUTO) 8.1 % (3.0-13.0); NEUTROPHILS % (AUTO) 86.1 % (40.0-77.0); PLATELET COUNT (AUTO) 471 K/uL (130-400); RED BLOOD CELL COUNT(AUTO) 2.72 MIL/uL (4.00-5.50); RED CELL DISTRIBUTION WIDTH 14.1 % (11.0-15.5)
[2019-12-18 08:00] LABS: INR 1.18 (0.85-1.15); PROTHROMBIN TIME 12.7 SEC (9.6-11.6)
[2019-12-18 08:04] LABS: ALBUMIN 1.6 g/dL (3.5-5.0); BILIRUBIN,TOTAL 0.4 mg/dL (0.2-1.0); CREATININE 0.6 mg/dL (0.5-1.5); POTASSIUM 3.8 mmol/L (3.5-5.1); TOTAL PROTEIN, SERUM 4.2 g/dL (6.0-8.3)
[2019-12-18 08:18] VITALS: BP 111/88
[2019-12-18] MEDS: LUBIPROSTONE 24 MCG CAP PO SCH ×2 (08:55→17:15)
[2019-12-18] MEDS: DULOXETINE HCL 30 MG CAP PO SCH (08:56)
[2019-12-18] MEDS: PANTOPRAZOLE 40 MG/VIAL IVP SCH ×2 (08:56→21:02)
[2019-12-18] MEDS: ZINC SULFATE 220 CAPSULE PO SCH (08:56)
[2019-12-18] MEDS: PREGABALIN 75 MG CAPSULE PO SCH ×2 (08:56→21:03)
[2019-12-18] MEDS: FAMOTIDINE 20MG TAB 20 MG TAB PO SCH (08:56)
[2019-12-18] MEDS: LISINOPRIL 5 MG TABLET PO SCH (08:56)
[2019-12-18] MEDS: ASCORBIC ACID 500 MG TAB PO SCH (08:57)
[2019-12-18] MEDS: ENOXAPARIN SODIUM 40 MG/0.4 ML SYRINGE SQ SCH ×2 (08:57→21:05)
[2019-12-18] MEDS: DEXAMETHASONE 10MG/ML 1ML VIAL 6 MG in SODIUM CHLORIDE 0.9% 50 ML IV SCH (10:33)
[2019-12-18 12:04] VITALS: BP 129/85
--- NOTE | 2019-12-18 13:42 | NUR ---
Spoke with indirect sales representative from [facility], updated on patients condition/status, awaiting 14 days from covid positive; potential transfer tomorrow (Thursday), or Thursday
--- NOTE | 2019-12-18 15:47 | NUR ---
1430 bed linen changed, diaper changed/yeast like rash noted to crissy and gluteal area; applied barrier & fungal cream; gown changed; skin is shiny/wet-starting to third space; on 2 liter/day restriction, advised to decrease water intake. magnesium started due to protocol; on continuous pulse ox, st 150's per telemetry for approx 1 minute then back down to 90's sr; will continue to monitor. questioned about code status, stated wasnt asked/aware, informed if decides to not do certain procedures, then we should know. verbal information given about ventilator & cpr procedures. cb in reach, items in reach on bedside table; speaking with family member with clear sentences w/o resp distress noted. Addendum: 12/18/19 at 1553 by BECKA CLEANING RN RN patient continues to ask for morphine even after given, moans w/ any movement, on tylox @ home only; morphine given as ordered/requested per may; psychiatric np rounded, advised to wean down for [facility] placement off narcotic iv. informed psychiatric np about 3rd spacing, no new orders noted.
[2019-12-18 15:54] VITALS: BP 107/72
[2019-12-18 19:55] VITALS: BP 124/84
[2019-12-18 23:41] VITALS: BP 110/80
--- NOTE | 2019-12-19 | NUR ---
ELEVATED HR PATIENT HAD AN EPISODE OF HEART RATE INCREASING TO 150S FOR A FEW SECONDS, THEN RETURNED TO BASELINE RATE OF SR 90S. PATIENT DENIES ANY ADDITIONAL SYMPTOMS AT THIS TIME. WILL CONTINUE TO MONITOR PATIENT'S HEART RATE.
[2019-12-19] MEDS: ACETAMINOPHEN-CODEINE 300/30MG TAB PO PRN ×2 (01:58→12:38)
[2019-12-19] MEDS: MORPHINE SULFATE 2 MG/ML 1ML SYG IVP PRN ×3 (02:58→15:55)
[2019-12-19 03:34] VITALS: BP 116/72
--- NOTE | 2019-12-19 04:00 | NUR ---
PERICARE PERICARE PERFORMED, BILATERAL LABIA SWOLLEN AND RED, BARRIER REAM APPLIED. REDNESS NOTED TO THE COCCYX AREA, ALLEVEYNE LIFE DRESSING APPLIED TO PREVENT BREAKDOWN AND RELIEVE PRESSURE. PATIENT EDUCATED ABOUT THE IMPORTANCE OF TURNING AND RELIEVING PRESSURE. PATIENT PLACED IN THE RIGHT LATERAL POSITION SUPPORTED BY PILLOWS AND LEFT COMFORTABLY IN BED.
--- NOTE | 2019-12-19 04:42 | NUR ---
PICC LINE DRESSING PICC LINE DRESSING FOUND TO BE WET FROM WEEPING OF PATIENT'S SKIN. DRESSING CHANGED, AND CAPS REPLACED. APPROXIMATELY 2CM OF THE LINE APPEARS TO BE PULLED OUT FROM THE INSERTION SITE. BOTH OF THE LUMENS FLUSHED WITH NORMAL SALINE WITHOUT RESISTANCE AND GOOD BLOOD RETURN. SAMPLE COLLECTED FOR LABORATORY AFTER FLUSHING AND WASTING 10MLS OF BLOOD. CHARGE NURSE INFORMED OF THE STATUS OF THE LINE AND ASKED TO HAVE PICC LINE NURSE PERFORM ASSESSMENT TODAY.
[2019-12-19] MEDS: MAGNESIUM 2GM PREMIX 50ML 50 ML IV PRN (06:41)
[2019-12-19 08:02] VITALS: BP 119/79
[2019-12-19 08:09] LABS: ALBUMIN 1.5 g/dL (3.5-5.0); BILIRUBIN,TOTAL 0.3 mg/dL (0.2-1.0); CREATININE 0.6 mg/dL (0.5-1.5); POTASSIUM 3.8 mmol/L (3.5-5.1); TOTAL PROTEIN, SERUM 4.5 g/dL (6.0-8.3)
[2019-12-19] MEDS ORDERED: PHARMACY COMMUNICATION MISC SCH (08:45)
[2019-12-19] MEDS: DULOXETINE HCL 30 MG CAP PO SCH (08:46)
[2019-12-19] MEDS: PANTOPRAZOLE 40 MG/VIAL IVP SCH ×2 (08:46→21:12)
[2019-12-19] MEDS: FAMOTIDINE 20MG TAB 20 MG TAB PO SCH (08:46)
[2019-12-19] MEDS: PREGABALIN 75 MG CAPSULE PO SCH ×2 (08:46→21:11)
[2019-12-19] MEDS: LUBIPROSTONE 24 MCG CAP PO SCH ×2 (08:46→17:17)
[2019-12-19] MEDS: ZINC SULFATE 220 CAPSULE PO SCH (08:46)
[2019-12-19] MEDS: LISINOPRIL 5 MG TABLET PO SCH (08:46)
[2019-12-19] MEDS: ASCORBIC ACID 500 MG TAB PO SCH (08:47)
[2019-12-19] MEDS: DEXAMETHASONE 10MG/ML 1ML VIAL 6 MG in SODIUM CHLORIDE 0.9% 50 ML IV SCH (08:50)
[2019-12-19] MEDS: ONDANSETRON HCL 4 MG/2 ML VIAL IVP PRN ×2 (08:50→18:28)
[2019-12-19 09:12] LABS: HEMATOCRIT 24.6 % (36-48)
[2019-12-19 09:41] LABS: BASOPHILS % (AUTO) 0.3 % (0.0-5.0); EOSINOPHILS % (AUTO) 2.4 % (0.0-8.0); LYMPHOCYTES % (AUTO) 17.6 % (21.0-51.0); MEAN CORPUSCULAR HEMOGLOBIN 33.5 pg (27.0-33.0); MEAN CORPUSCULAR HGB CONC 33.3 g/dL (32.0-36.0); MEAN CORPUSCULAR VOLUME 100.4 fL (79-99); MONOCYTES % (AUTO) 11.7 % (3.0-13.0); NEUTROPHILS % (AUTO) 67.5 % (40.0-77.0); PLATELET COUNT (AUTO) 443 K/uL (130-400); RED BLOOD CELL COUNT(AUTO) 2.48 MIL/uL (4.00-5.50); RED CELL DISTRIBUTION WIDTH 13.6 % (11.0-15.5); WHITE BLOOD COUNT (AUTO) 17.8 K/uL (4.8-10.8)
--- NOTE | 2019-12-19 09:51 | NUR ---
Abnormal lab results reported, hemoglobin 6.0/hematocrit 18.4; reported to Dr Maldonado who recommended a redraw, notified Dr Becker per telephone; stated to infuse 1 unit if redraw is accurate and hold lovenox & collect occult blood sample; redraw performed with 5ml of waste per left upper arm picc; see chart for results, no need for blood transfusion @ this time. New change in med orders per verbal Dr Maldonado; will continue to monitor.
[2019-12-19 10:04] LABS: B-TYPE NATRIURETIC PEPTIDE 112 pg/mL (0-100)
[2019-12-19] MEDS: SPIRONOLACTONE 25 MG TAB PO SCH (11:45)
[2019-12-19] MEDS ORDERED: ALBUMIN (HUMAN) 5% 250 ML IV SCH (11:45)
[2019-12-19 12:02] VITALS: BP 125/80
[2019-12-19] MEDS: FUROSEMIDE 10 MG/ML 4ML VIAL IV SCH ×2 (15:00→21:11)
--- NOTE | 2019-12-19 15:00 | NUR ---
Linen & gown changed, incontinent of bowel/bladder; new order attained for mcdaniel, inserted per sterile technique. Fungal & barrier cream applied to perineal and gluteal area & lower back; adjusted weight/pillows as indicated, medicated for pain/lasix as ordered; will continue to monitor. Ate 15% of jello for lunch only.
[2019-12-19 16:06] VITALS: BP 110/70
--- NOTE | 2019-12-19 17:00 | NUR ---
CALLED TO ASSESS PICC PLACEMENT. LEFT UPPER ARM PICC WAS NOTED TO HAVE DRESSING IN NEED OF REPLACEMENT. ADHESIVE COMING OFF AND STAT GABY NO LONGER ADHERING TO SKIN. DRESSING REMOVED ASEPTICALLY AND PICC IS NOTED TO BE AT SAME POSITION NOTATED WHEN PLACED,45 CM INTERNAL WITH 5 CM EXTERNAL. PICC INSERTION SITE AND EXTERNAL CATHETER THOROUGHLY CLEANED WITH CHLORHEXADINE PREP. NEW STAT TAKS APPLIED AND STERILE DRESSING REPLACED. BOTH LUMENS HAVE GOOD BLOOD RETURN AND FLUSHED AND CLAMPED. NEW CHEST XRAY ORDERED TO CONFIRM PICC TIP PLACEMENT.
[2019-12-19] MEDS: ENOXAPARIN SODIUM 40 MG/0.4 ML SYRINGE SQ SCH (17:17)
--- NOTE | 2019-12-19 19:21 | NUR ---
PICC IS GOOD PLACEMENT PER RADIOLOGIST READING DONE 12-19-19/1843, WITH PICC TIP IN SVC.
[2019-12-19 20:00] VITALS: BP 121/83
[2019-12-19] MEDS: CALCIUM 600 + VITAMIN D 400 TABLET PO SCH (21:11)
[2019-12-19 23:47] VITALS: BP 101/70
[2019-12-20] MEDS: MORPHINE SULFATE 2 MG/ML 1ML SYG IVP PRN ×3 (00:38→17:07)
--- NOTE | 2019-12-20 01:00 | NUR ---
CHANGE IN CARDIAC RHYTHM PATIENT HAD AN EPISODE OF PAROXYSMAL A-FIB IN 130S WHILE IN BED. PATIENT DENIES ANY CHEST PAIN, DIZZINESS OR OTHER SYMPTOMS AT THIS TIME. OBINNA Montez INFORMED WITH ORDER TO OBTAIN A STIP FROM TELEMETRY, PERFORM EKG AND LABS THIS AM. WILL CONTINUE TO MONITOR PATIENT.
[2019-12-20] MEDS: FUROSEMIDE 10 MG/ML 4ML VIAL IV SCH ×2 (03:45→12:16)
--- NOTE | 2019-12-20 04:00 | NUR ---
LASIX HELD PATIENT HAS ORDERS FOR LASIX 40MG SCHEDULED AT 0400, BP 96/69, HR 103, WILL REASSESS BLOOD PRESSURE TO ENSURE SAFETY OF ADMINISTRATION AND INFORM MD IN AM.
[2019-12-20 04:18] VITALS: BP 96/69
[2019-12-20 09:28] VITALS: BP 106/71
[2019-12-20] MEDS: ZINC SULFATE 220 CAPSULE PO SCH (09:39)
[2019-12-20] MEDS: PANTOPRAZOLE 40 MG/VIAL IVP SCH (09:40)
[2019-12-20] MEDS: SPIRONOLACTONE 25 MG TAB PO SCH (09:40)
[2019-12-20] MEDS: FAMOTIDINE 20MG TAB 20 MG TAB PO SCH (09:41)
[2019-12-20] MEDS: PREGABALIN 75 MG CAPSULE PO SCH (09:41)
[2019-12-20] MEDS: CALCIUM 600 + VITAMIN D 400 TABLET PO SCH (09:41)
[2019-12-20] MEDS: ASCORBIC ACID 500 MG TAB PO SCH (09:41)
[2019-12-20] MEDS: DEXAMETHASONE 10MG/ML 1ML VIAL 6 MG in SODIUM CHLORIDE 0.9% 50 ML IV SCH (09:42)
[2019-12-20] MEDS: LISINOPRIL 5 MG TABLET PO SCH (09:43)
[2019-12-20] MEDS: LUBIPROSTONE 24 MCG CAP PO SCH ×2 (09:45→17:07)
[2019-12-20] MEDS: DULOXETINE HCL 30 MG CAP PO SCH (09:45)
--- NOTE | 2019-12-20 10:40 | NUR ---
DC PLAN SPOKE TO BORIS CONFIRMED THAT IT WAS 14 DAYS SINCE POSITIVE TEST. SENT UPDATED CLINICALS AND LET DR. DÍAZ KNOW OF ACCEPTANCE. Addendum: 12/20/19 at 1043 by RADHA LOMAS RN CM Amended: Links added.
--- NOTE | 2019-12-20 11:15 | NUR ---
DC PLAN SPOKE TO DR. HOLDEN GAVE OKAY TO DC TO [facility]. MOT/COVID FORM SIGNED IN CHART. EMS SET UP. Addendum: 12/20/19 at 1116 by RADHA LOMAS RN CM Amended: Links added.
[2019-12-20 12:12] VITALS: BP 110/71
--- NOTE | 2019-12-20 14:38 | NUR ---
REPOSITIONED 1 BM noted. Pericare rendered. Perineal noted to be red. Sacral area red, stage 2 ulcer noted. Allevyn dressing in place. Barrier cream applied. Left for arm skin tear and wound to left lower leg also noted, secondary to generalized weeping edema. Dressing changed. Bruising and redness noted to tunk of body. Bra removed. Sheets tidied and free of wrinkles. Repositoned pt to right side.
[2019-12-20] MEDS: ACETAMINOPHEN-CODEINE 300/30MG TAB PO PRN (15:41)
[2019-12-20 15:45] VITALS: BP 118/80
--- NOTE | 2019-12-20 16:16 | NUR ---
Report Pt to be transferred to [facility] Report called to Nurse Yoli, all questions answered and addressed. VS stable. NAD. EMS called awaiting clam picker. -
[2019-12-20 17:03] VITALS: BP 119/83
--- NOTE | 2019-12-20 19:50 | NUR ---
DISCHARGE CAME OUT OF ANOTHER PATIENT'S ROOM WAS INFORMED THAT THE PATIENT WAS TAKEN BY EMS TO [facility].
[2019-12-21] MEDS ORDERED: ERGOCALCIFEROL (VITAMIN D2) 50,000 UNIT CAPSULE PO SCH (09:00)
== END 2019-12-20 19:50 | DRG 177 ==
LOC: EDH 23:26 → EDHIP 12-06 00:48 → 2DH 12-06 04:00 → 2AH 12-13 20:48
PROVIDERS: ADMIT Internal Medicine Hematology & Oncology; ATTEND Internal Medicine Hematology & Oncology
PROC: 02HV33Z Insertion of Infusion Device into Superior Vena Cava, Percutaneous Approach (ICD-10-PCS; principal; 2019-12-08)
PROC: XW13325 Transfusion of Convalescent Plasma (Nonautologous) into Peripheral Vein, Percutaneous Approach, New Technology Group 5 (ICD-10-PCS; 2019-12-11)
DX: U07.1 COVID-19 (principal); J12.89 Other viral pneumonia; J96.01 Acute respiratory failure with hypoxia; J15.6 Pneumonia due to other Gram-negative bacteria; J44.0 Chronic obstructive pulmonary disease with (acute) lower respiratory infection; E87.1 Hypo-osmolality and hyponatremia; I50.42 Chronic combined systolic (congestive) and diastolic (congestive) heart failure; D47.1 Chronic myeloproliferative disease; C94.6 Myelodysplastic disease, not elsewhere classified; M41.9 Scoliosis, unspecified; I50.9 Heart failure, unspecified; D89.9 Disorder involving the immune mechanism, unspecified; K27.9 Peptic ulcer, site unspecified, unspecified as acute or chronic, without hemorrhage or perforation; G89.29 Other chronic pain; K29.70 Gastritis, unspecified, without bleeding; Y95 Nosocomial condition; M79.7 Fibromyalgia; I48.91 Unspecified atrial fibrillation; E87.6 Hypokalemia; M48.00 Spinal stenosis, site unspecified; D64.9 Anemia, unspecified; E55.9 Vitamin D deficiency, unspecified; K59.03 Drug induced constipation; R60.0 Localized edema; M19.90 Unspecified osteoarthritis, unspecified site; Z74.01 Bed confinement status; Z79.01 Long term (current) use of anticoagulants; Z87.891 Personal history of nicotine dependence; Z83.3 Family history of diabetes mellitus; Z82.5 Family history of asthma and other chronic lower respiratory diseases; Z82.49 Family history of ischemic heart disease and other diseases of the circulatory system; Z82.3 Family history of stroke; Z82.0 Family history of epilepsy and other diseases of the nervous system; T40.2X5A Adverse effect of other opioids, initial encounter; Y92.89 Other specified places as the place of occurrence of the external cause
CPT/HCPCS: 36415; 36430; 71045; 74177; 80053; 80202; 81003; 82150; 82306; 82728; 82948; 83615; 83690; 83735; 83880; 84100; 84132; 84145; 84484; 85025; 85378; 85610; 86140; 86850; 86900; 86901; 86927; 87040; 87426; 87641; 93005; 93970; 94640; 94664; 99291; C1751; C1894; C9113; G0378; J1100; J1170; J1650; J1940; J2270; J2405; J2543; J2920; J3370; J3475; J3480; J3490; J7030; J7050; J8540; P9045; Q9967